=== PATIENT | female | born 1955 | race Caucasian/White ===

== ENCOUNTER → 2017-04-02 20:00 | Outpatient (CLI) | payer BC, SELFPAY | PROVIDERS: PCP Nurse Practitioner Family; Visit Provider Nurse Practitioner Family | DX: J02.9 Acute pharyngitis, unspecified (principal) ==

== ENCOUNTER 2020-12-27 11:46 | Emergency (ER) | payer BC, SELFPAY ==
[2020-12-27 12:40] VITALS: BP 192/119; PULSE 101; RESP 20; TEMP 37.1; O2SAT 96; BMI 31.6
[2020-12-27 13:03] LABS: UTC Strep Screen (Rapid) Positive (Negative)
--- NOTE | 2020-12-27 13:28 | HMH.EDUTC ---
[facility] [place] Disposition Clinical Impression: Strep throat Disposition: Home, Self-Care Condition on Discharge: Good Instructions: Strep Throat, DI for Strep Throat Additional Instructions: Drink plenty of fluids. Take tylenol or ibuprofen for pain or fever. Take the medications as directed. Follow up with your regular doctor. GO TO THE ER FOR ANY WORSENING SYMPTOMS Throw your tooth brush away and get a new one. Prescriptions: Amoxicillin [Amoxicillin 500mg Tab] 500 mg PO TID 10 Days #30 tab Transmission Status: Received by [facility] # predniSONE [Deltasone 10mg tablet] 10 mg PO BID 3 Days #6 tab Transmission Status: Received by [facility] # Benzonatate [Tessalon Perle 100mg Cap] 100 mg PO TIDP PRN #30 cap PRN Reason: Cough Transmission Status: Received by [facility] # Referrals: Buddy Huffman MD [Primary Care Provider] - Forms: Work/School Release Time of Disposition: 13:30 Medical Decision Making - Medical Records Medical records reviewed: No: I reviewed the patient's medical records. - Arvin Inquiry Pt receiving controlled substance: No Vital Signs: 12/27/20 12:40 12/27/20 13:35 Temperature 98.7 F 98.7 F Temperature Source Oral Pulse Rate 101 H Pulse Rate [Right Brachial] 101 H Respiratory Rate 20 20 Blood Pressure 192/119 H Blood Pressure [Right Arm] 192/119 H Blood Pressure Mean [Right Arm] 143 Blood Pressure Source [Right Arm] Automatic Cuff Blood Pressure Position [Right Arm] Sitting 02 Sat by Pulse Oximetry 96 Oxygen Delivery Method Room Air - Lab Data Lab results reviewed: Yes: I reviewed the patient's lab results. Lab Results 12/27/20 12:57: Strep Scn Rapid Clinic Positive A [facility] [place] HPI - General Time Seen by Provider: 12/27/20 12:45 Mode of Arrival: Ambulatory Source of Information: Patient Limitations: No Limitations Description of Symptoms (Recalled from Triage Doc. by RN): PATIENT C/O SORE THROAT X 2 DAYS HEENT Symptoms (Recalled from RN notes): Yes Resp Symptoms (Recalled from RN notes): No Skin Symptoms (Recalled from RN notes): No MS Symptoms (Recalled from RN notes): No Functional Status (Recalled from RN notes): WNL - History of Present Illness Provider Complaint: She c/o sore throat for the past 2 days. She denies any significant cough or congestion. - Related Data Home Medications Medication Instructions Recorded Confirmed hydrochlorothiazide 25 mg tablet 25 mg PO ONCE 04/02/17 01/21/18 lisinopril 40 mg tablet 40 mg PO ONCE 04/02/17 01/21/18 Previous Rx's Medication Instructions Recorded amoxicillin 500 mg capsule 500 mg PO Q12H 10 Days #20 cap 01/21/18 miconazole nitrate 200 mg-2 % (9 1 appful VAGINAL QHS 3 Days #1 each 01/21/18 gram) vaginal kit Amoxicillin [Amoxicillin 500mg Tab] 500 mg PO TID 10 Days #30 tab 12/27/20 Benzonatate [Tessalon Perle 100mg 100 mg PO TIDP PRN #30 cap 12/27/20 Cap] predniSONE [Deltasone 10mg tablet] 10 mg PO BID 3 Days #6 tab 12/27/20 Allergies Allergy/AdvReac Type Severity Reaction Status Date / Time sulfamethoxazole Allergy Unknown Verified 12/27/20 13:06 [From BACTRIM] trimethoprim [From BACTRIM] Allergy Unknown Verified 12/27/20 13:06 fluconazole [From Diflucan] AdvReac Intermediate Verified 01/21/18 16:36 - Worker's Comp Is this a Worker's Comp case?: No [facility] History - Hepatitis A Screen Drug use history?: No High risk sexual behaviors?: No History of sexually transmitted infection?: No Currently employed?: No Childcare worker?: No Do you have indoor plumbing?: Yes Do you have electricity?: Yes Attestation statement:: This patient has been screened for Hepatitis A risk factors. I have reviewed the patient's past medical history: Yes Medical History: Reports:: Hypertension - Social History Smoking Status: Never smoker Alcohol Intake: never Substance Use Type: denies use Occupational Status: em
[2020-12-27 13:35] VITALS: BP 192/119; PULSE 101; RESP 20; TEMP 37.1; O2SAT 96
== END 2020-12-27 13:53 | disposition home or self-care (01) ==
PROVIDERS: Emergency Provider Nurse Practitioner Family; PCP Family Medicine
DX: J02.9 Acute pharyngitis, unspecified (principal)
CPT/HCPCS: 87880; 99202; G0463

== ENCOUNTER 2021-01-13 15:43 | Emergency (ER) | payer BC, SELFPAY ==
[2021-01-13 17:00] VITALS: BP 208/132; PULSE 96; RESP 21; TEMP 36.9; O2SAT 98; BMI 29.7
[2021-01-13 17:38] LABS: UTC Strep Screen (Rapid) Negative (Negative)
--- NOTE | 2021-01-13 17:46 | HMH.EDUTC ---
[facility] Disposition Clinical Impression: Sore throat (viral) Disposition: Home, Self-Care Condition on Discharge: Good Instructions: Sore Throat, Allergic Rhinitis, DI for Allergic Rhinitis Additional Instructions: *Monitor Temp, Over the counter Motrin or Tylenol as directed/as needed Tylenol every 4 hours and Motrin every 6 hours (as long as your family doctor has told you that you can take it) for fever or pain. and straight to ER if unable to lower temp less than 101.0 after medication given *Warm salt water gargles may help to soothe the throat *Throat Lozenges *Warm fluids like tea with honey may help to soothe the throat *Sleep elevated *Humidifier/Vaporizer *Flonase 2 sprays in each nostril daily but be aware that it may take 2-3 days before you notice improvement Make sure to follow up with your Family Doctor for re-evaluation of your blood pressure Your throat swab was sent for culture. Those results are typically sent to your primary care. Be sure to follow up in 2-3 days with your family doctor/primary care physician if no improvement so they can review those result and treat if necessary. If you don?t have a primary care doctor, I recommend you get one but in the mean time, you will have to return to a walk in clinic Follow up IMMEDIATELY for new or worsening symptoms or no Noticeable improvement over the next 48-72 hours. 911 for difficulty breathing or swallowing Prescriptions: Fluticasone Propionate [Flonase 50mcg nasal spray 16gm] 1 spr NS DAILY #1 each Transmission Status: Received by [facility] #[id number] Referrals: Madeline Clarke PA [Primary Care Provider] - As needed Time of Disposition: 17:50 Medical Decision Making - Arvin Inquiry Pt receiving controlled substance: No Arvin was queried for this patient: No Vital Signs: 01/13/21 17:00 01/13/21 17:53 Temperature 98.4 F 98.4 F Temperature Source Oral Pulse Rate 96 H Pulse Rate [Right Brachial] 96 H Respiratory Rate 21 21 Blood Pressure 173/108 H Blood Pressure [Right Arm] 208/132 H Blood Pressure Mean [Right Arm] 157 Blood Pressure Source [Right Arm] Automatic Cuff Blood Pressure Position [Right Arm] Sitting 02 Sat by Pulse Oximetry 98 Oxygen Delivery Method Room Air - Lab Data Lab results reviewed: Yes: I reviewed the patient's lab results. Lab Results 01/13/21 17:15: Strep Scn Rapid Clinic Negative Orders (Tests/Meds): ORDERS Category Date Time Status Strep Screen Confirmation Stat Micro 01/13/21 17:15 Received Medical Decision Narrative: Discussed with patient about blood pressure and she declined transfer to the ED states that she will follow up with her PCP [facility] HPI - General Stated complaint: sore throat drainage Time Seen by Provider: 01/13/21 17:46 Mode of Arrival: Ambulatory Source of Information: Patient Limitations: No Limitations Description of Symptoms (Recalled from Triage Doc. by RN): PATIENT C/O SORE THROAT X 4 DAYS HEENT Symptoms (Recalled from RN notes): Yes Resp Symptoms (Recalled from RN notes): No Skin Symptoms (Recalled from RN notes): No MS Symptoms (Recalled from RN notes): No Functional Status (Recalled from RN notes): WNL - History of Present Illness Provider Complaint: Patient states that she has been having sore throat and nasal drainage for the last 3-4 days States that she her drainage from her nose is clear adn jeannine feels like it may be allergies but grandchild had strep a few weeks ago so she wanted to get checked - Related Data Home Medications Medication Instructions Recorded Confirmed hydrochlorothiazide 25 mg tablet 25 mg PO ONCE 04/02/17 01/21/18 lisinopril 40 mg tablet 40 mg PO ONCE 04/02/17 01/21/18 Previous Rx's Medication Instructions Recorded amoxicillin 500 mg capsule 500 mg PO Q12H 10 Days #20 cap 01/21/18 miconazole nitrate 200 mg-2 % (9 1 appful VAGINAL QHS 3 Days #1 each 01/21/18 gram) vaginal kit Amoxicillin [Amoxicillin 500m
[2021-01-13 17:53] VITALS: BP 173/108; PULSE 96; RESP 21; TEMP 36.9; O2SAT 98
== END 2021-01-13 17:58 | disposition home or self-care (01) ==
PROVIDERS: Emergency Provider Nurse Practitioner; PCP Physician Assistant
DX: J02.9 Acute pharyngitis, unspecified (principal); I10 Essential (primary) hypertension
CPT/HCPCS: 87880; 99202; G0463

== ENCOUNTER → 2021-04-07 13:23 | Outpatient (CLI) | payer MEDICARE, BC, SELFPAY ==
[2021-04-07 13:52] LABS: Chloride 101 mmol/L (98-107); Potassium 4.7 mmoL/L (3.5-5.1); Sodium 132 mmol/L (136-145)
[2021-04-07 13:55] LABS: Alanine Aminotransferase 19 U/L (12-78); Albumin Level 4.4 g/dl (3.5-5.0); Albumin/Globulin Ratio 1.6 (1.1-1.8); Alkaline Phosphatase 140 U/L (38-126); Anion Gap 14.7 mEq/L (5-15); Aspartate Amino Transferase 29 U/L (14-36); Bilirubin,Total 0.8 mg/dl (0.2-1.3); Blood Urea Nitrogen 15 mg/dl (7-17); Calcium 8.3 mg/dl (8.4-10.2); Carbon Dioxide 21 mmol/L (22.0-30.0); Estimated Glomerular Filt Rate 124 ml/min (>60); GFR (African American) 150 ML/MIN (>60); Globulin 2.8 g/dL (1.3-3.2); Glucose 356 mg/dl (74-100); Magnesium 1.8 mg/dl (1.6-2.3); Total Protein,Serum 7.2 g/dl (6.3-8.2)
[2021-04-07 13:56] LABS: Basophils # 0.1 K/mm3 (0-0.2); Basophils % 1.5 % (0.1-2.0); Eosinophils # 0.1 K/mm3 (0.0-0.4); Eosinophils % 0.9 % (0.1-12.0); Hematocrit 54.7 % (37.0-47.0); Hemoglobin 17.8 g/dL (12.2-16.2); Lymphocytes # 1.3 K/mm3 (0.7-4.5); Lymphocytes % 18.2 % (10-50); Mean Corpuscular HGB Conc 32.6 g/dL (31.8-35.4); Mean Corpuscular Volume 88.7 fl (81-99); Mean Platelet Volume 8.1 fl (7.4-10.4); Monocytes # 0.4 K/mm3 (0.1-1.0); Monocytes % 5.1 % (1.7-9.3); Neutrophils # 5.3 K/mm3 (1.8-7.8); Neutrophils % 74.2 % (37.0-80.0); Platelet Count 351 K/mm3 (142-424); Red Blood Count 6.17 M/mm3 (4.20-5.40); Red Cell Distribution Width 13.7 % (11.5-17.5); White Blood Count 7.2 K/mm3 (4.8-10.8)
[2021-04-07 14:08] LABS: Troponin I 0.14 ng/ml (0.00-0.034)
[2021-04-07 14:26] LABS: Thyroid Stimulating Hormone 0.75 uIU/mL (0.465-4.68)
[2021-04-07 16:58] LABS: Hemoglobin A1C > 14.0 % (4.0-6.0)
== END ==
PROVIDERS: PCP Nurse Practitioner Family; Visit Provider Nurse Practitioner Family
DX: R07.89 Other chest pain (principal); R00.0 Tachycardia, unspecified; E11.9 Type 2 diabetes mellitus without complications; Z79.4 Long term (current) use of insulin
CPT/HCPCS: 36415; 80053; 83036; 83735; 84443; 84484; 85025

== ENCOUNTER → 2021-04-08 07:51 | Outpatient (CLI) | payer MEDICARE, BC, SELFPAY ==
[2021-04-08 09:09] LABS: Chol/HDL Ratio 6.3 (1-3.5); Cholesterol 263 mg/dl (140-200); HDL Cholesterol 42 mg/dl (40-60); Triglycerides 269 mg/dl (30-150); VLDL Cholesterol 54 mg/dL (0-40)
[2021-04-08 09:20] LABS: Direct LDL Cholesterol 197.78 mg/dL (100-129)
[2021-04-08 09:26] LABS: Troponin I 0.56 ng/ml (0.00-0.034)
[2021-04-08 12:49] LABS: CATHL Activated Clotting Time 198 SEC (74-125)
== END ==
PROVIDERS: PCP Nurse Practitioner Family; Visit Provider Nurse Practitioner Family
DX: Z00.00 Encounter for general adult medical examination without abnormal findings (principal); R77.8 Other specified abnormalities of plasma proteins; E78.5 Hyperlipidemia, unspecified; E11.9 Type 2 diabetes mellitus without complications; Z79.4 Long term (current) use of insulin
CPT/HCPCS: 36415; 80061; 84484; 85347; Q9967

== ENCOUNTER 2021-04-08 10:23 | Inpatient (IN) | payer MEDICARE, BC, SELFPAY ==
[2021-04-08] VITALS (20 sets, daily range): BP systolic 141–192; BP diastolic 91–119; PULSE 99–128; RESP 16–20; TEMP 36.6–37; O2SAT 93–98; BMI 30.4; BMI 30.6
--- NOTE | 2021-04-08 | IR_ITS ---
APPROVED REPORT Patient Location: Inpatient Director Of Enterprise Applications: KAYLA Bryant RT (R) PROCEDURES Left heart catheterization Left ventriculogram Selective coronary angiogram Drug-eluting stent deployment to the mid LAD INDICATION Acute non-ST elevation myocardial infarction Informed consent was obtained prior to the procedure. COMPLICATIONS None Estimated Blood Loss: Less than 10 ML TECHNIQUE One percent lidocaine used to anesthetize the right anterior aspect of the wrist. The right radial artery was accessed via the Seldinger technique. A 6 Slov[place] sheath was placed in the right radial artery. 2.5 mg of verapamil, 800 mcg of nitroglycerin, 1mg Lidocaine and 5000 U Heparin were given through the arterial sheath. The [place] catheter was also used to perform left heart catheterization, left ventriculogram and selective coronary angiogram. At the end the diagnostic angiogram therapeutic heparin was administered giving a therapeutic ACT and the same guide catheter was left in the left main artery where a Choice PT extra-support wire was placed distally in the LAD. A 2.5 mm balloon was used to predilate the stenosis however this continues to [facility] seed therefore a 3 mm x 22 mm resolute [place] stent was deployed at 24 siddhartha reducing the critical stenosis to 0%. ABDIAS I flow was present at the beginning of the procedure with ABDIAS-3 flow at the end of the procedure. At the end of the procedure the apparatus was removed the sheath was removed good hemostasis was achieved using TR banding patient was transferred to the postop putting in stable condition ANGIOGRAPHIC RESULTS The left main artery Normal The left anterior descending artery Has a proximal smooth 10 to 20% stenosis followed by a critical greater than 90% stenosis immediately after the first diagonal artery and first septal plating stripper. The remaining LAD wraps the apex and is accompanied by ABDIAS I flow. 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 Brilinta 90 twice daily plus aspirin 81 mg daily 2. LDL less than 55 to be achieved with high intensity statin 3. Avoidance of tobacco products 4. Obtain a formal echocardiogram to specifically measure ejection fraction. If ejection fraction is 35% or less I recommend LifeVest due to patient's increased risk of sudden cardiac 5. Start Entresto and carvedilol once hemodynamically stable 6. Cardiac rehabilitation referral 7. Medical management for the diagonal artery disease Electronically signed by : John Hernandez MD 04/08/2021 12:52:57
--- NOTE | 2021-04-08 10:19 | ECG_ITS ---
APPROVED REPORT Exam: Resting ECG HR:111 bpm ECG Measurements Heart Rate 111 AXES TX 126 P 79 QRSd 94 QRS 112 QT 331 T 48 QTc 396 Conclusion SINUS TACHYCARDIA POSSIBLE RIGHT VENTRICULAR HYPERTROPHY [SOME/ALL OF: PROMINENT R IN V1, LATE TRANSITION, RAD, ULISES, SSS] poor r wave progression ABNORMAL ECG UNCONFIRMED REPORT Electronically signed by : Joe Lynch MD 04/09/2021 07:37:04
--- NOTE | 2021-04-08 10:30 | XR_ITS ---
FINAL REPORT CLINICAL HISTORY: . CHEST PAIN COMPARISON: May 25, 2015 FINDINGS: The heart size is normal. The mediastinum is normal. There is mild bilateral atelectasis. There are no pleural effusions. There is no pneumothorax. There is no osseous abnormality. IMPRESSION: Mild bilateral atelectasis. Reviewed, Interpreted and Dictated by Reginald Solano III, MD Transcribed by Piyush Campoverde Authenticated by Rgeinald Solano III, MD on 04/08/2021 11:37:44 AM [facility]
[2021-04-08 10:44] LABS: Basophils # 0.2 K/mm3 (0-0.2); Eosinophils # 0.1 K/mm3 (0.0-0.4); Hematocrit 56.4 % (37.0-47.0); Lymphocytes # 1.9 K/mm3 (0.7-4.5); Lymphocytes % 23.7 % (10-50); Mean Corpuscular HGB Conc 32.6 g/dL (31.8-35.4); Monocytes # 0.5 K/mm3 (0.1-1.0); Neutrophils # 5.3 K/mm3 (1.8-7.8); Neutrophils % 67.4 % (37.0-80.0); Platelet Count 353 K/mm3 (142-424); Red Blood Count 6.34 M/mm3 (4.20-5.40); Red Cell Distribution Width 13.8 % (11.5-17.5); White Blood Count 7.9 K/mm3 (4.8-10.8)
--- NOTE | 2021-04-08 10:45 | PC.NURSE ---
notified cardiology office of pt in ER, spoke with irma
--- NOTE | 2021-04-08 10:48 | HMH.EDGENADL ---
ED Disposition Clinical Impression: ACS (acute coronary syndrome) Disposition: Admitted As Inpatient Condition on Discharge: Undetermined Referrals: Michelle Bowles APRN [Primary Care Provider] - - Critical Care Critical Care Time: No Attestation: On 04/08/21, the high probability of a clinically significant, sudden or life threatening deterioration of the following system(s) required my full and direct attention, intervention and personal management. The time I documented below is in addition to time spent performing reported procedures but includes the following listed in this critical care notation. Medical Decision Making - Medical Records Medical records reviewed: Yes: I reviewed the patient's medical records. - Arvin Inquiry Pt receiving controlled substance: No Vital Signs: 04/08/21 10:24 04/08/21 10:30 04/08/21 11:00 Temperature 98.6 F Temperature Source Oral Pulse Rate 112 H 112 H Pulse Rate [Right Radial] 105 H Respiratory Rate 18 16 16 Blood Pressure 175/114 H 168/113 H Blood Pressure [Right Arm] 186/119 H Blood Pressure Mean 134 129 Blood Pressure Mean [Right Arm] 141 Blood Pressure Source [Right Arm] Automatic Cuff Blood Pressure Position [Right Arm] Sitting 02 Sat by Pulse Oximetry 96 95 95 Oxygen Delivery Method Room Air Room Air Nasal Cannula - Lab Data Lab results reviewed: Yes: I reviewed the patient's lab results. Lab Results 04/08/21 10:25: WBC 7.9, RBC 6.34 H, Hgb 18.4 H, Hct 56.4 H, MCV 89.0, MCH 29.0, MCHC 32.6, RDW 13.8, Plt Count 353, MPV 8.0, Neut % (Auto) 67.4, Lymph % (Auto) 23.7, Wilkinson % (Auto) 6.0, Eos % (Auto) 1.0, Baso % (Auto) 2.0, Neut # (Auto) 5.3, Lymph # (Auto) 1.9, Wilkinson # (Auto) 0.5, Eos # (Auto) 0.1, Baso # (Auto) 0.2 04/08/21 10:25: Sodium 133 L, Potassium 4.3, Chloride 101, Carbon Dioxide 18 L, Anion Gap 18.3 H, BUN 16, Creatinine 0.50 L, Estimated Creat Clear 74, Estimated GFR 124, Est GFR ( Amer) 150, Glucose 318 H, Calcium 8.8, Troponin I 0.40 H 04/08/21 10:25: D-Dimer 0.34 04/08/21 10:25: NT-Pro-B Natriuret Pep 688 H Result diagrams: 04/08/21 10:25 04/08/21 10:25 Orders (Tests/Meds): ED MEDICATIONS Generic Name Dose Route Start Last Admin Trade Name Freq PRN Reason Stop Dose Admin Fentanyl Citrate 25 mcg 04/08/21 11:33 Fentanyl 100mcg/2ml Vial IV 04/09/21 11:33 Q3MINP PRN Moderate to Severe Pain Fentanyl Citrate 50 mcg 04/08/21 11:33 Fentanyl 100mcg/2ml Vial IV 04/09/21 11:33 Q3MINP PRN Moderate to Severe Pain Fentanyl Citrate 25 mcg 04/08/21 11:33 Fentanyl 250mcg/5ml Vial IV 04/09/21 11:33 Q3MINP PRN Moderate to Severe Pain Fentanyl Citrate 50 mcg 04/08/21 11:33 Fentanyl 250mcg/5ml Vial IV 04/09/21 11:33 Q3MINP PRN Moderate to Severe Pain Flumazenil 0.2 mg 04/08/21 11:33 Flumazenil 0.1mg/Ml 5ml Vial IV 04/08/21 23:00 NEEDED PRN Sedation Heparin Sodium (Porcine) 10,000 unit 04/08/21 11:33 Heparin 1,000 Units/Ml 10ml Vial (Customer Program Manager) IV 04/08/21 15:33 NEEDED PRN Emergency Box Crystalizer Sodium Chloride 1,000 mls @ 25 mls/hr 04/08/21 11:45 Sod Chlor 0.9% 1000ml Bag IV 04/09/21 11:33 .Q25H [place] Midazolam HCl 1 mg 04/08/21 11:33 Midazolam 2mg/2ml Vial IV 04/09/21 11:33 Q3MINP PRN Sedation Midazolam HCl 1 mg 04/08/21 11:33 Midazolam Hcl 1mg/1ml 5ml Vial IV 04/09/21 11:33 Q3MINP PRN Sedation Naloxone HCl 0.4 mg 04/08/21 11:33 Naloxone 0.4mg/Ml Vial IV 04/09/21 11:33 Q5MINP PRN Decreased Respirations Nitroglycerin 800 mcg 04/08/21 11:33 Nitroglycerin 800mcg/8ml Syr (Customer Program Manager) IV 04/09/21 11:33 NEEDED PRN Emergency Box Crystalizer Sodium Chloride 10 ml 04/08/21 10:30 Sodium Chloride 0.9% 10ml Flush Syringe IV 05/08/21 10:29 NEEDED PRN Maintain IV Site Discontinued Medications Generic Name Dose Route Start Last Admin Trade
[2021-04-08 11:06] LABS: Anion Gap 18.3 mEq/L (5-15); Blood Urea Nitrogen 16 mg/dl (7-17); Calcium 8.8 mg/dl (8.4-10.2); Carbon Dioxide 18 mmol/L (22.0-30.0); Chloride 101 mmol/L (98-107); Creatinine Clearance Estimated 74 mL/min (50-200); Estimated Glomerular Filt Rate 124 ml/min (>60); GFR (African American) 150 ML/MIN (>60); Glucose 318 mg/dl (74-100); Potassium 4.3 mmoL/L (3.5-5.1); Sodium 133 mmol/L (136-145)
--- NOTE | 2021-04-08 11:10 | PC.NURSE ---
ta bushn at BS
[2021-04-08 11:11] LABS: D-Dimer 0.34 ug/mL (0.0-0.5)
[2021-04-08 11:16] LABS: NT Pro Brain Natriuretic Pep. 688 pg/mL (0-125)
--- NOTE | 2021-04-08 11:19 | PC.NURSE ---
per sofía bush pt is going to go over for a heart cath today
--- NOTE | 2021-04-08 11:22 | PC.NURSE ---
notified ER of pt critical troponin
[2021-04-08 11:31] LABS: Hemoglobin 18.4 g/dL (12.2-16.2)
[2021-04-08 11:32] LABS: Influenza A, PCR Not Detected (NotDetected); Influenza B, PCR Not Detected (NotDetected)
--- NOTE | 2021-04-08 11:35 | PC.NURSE ---
contacted lab to check on status of covid swab.
--- NOTE | 2021-04-08 11:40 | PC.NURSE ---
pt to medical laboratory manager with sylvia corona at this time via wheelchair
--- NOTE | 2021-04-08 11:40 | PC.NURSE ---
Sign Erector And Repairer nurse present to transport pt to lab. Reel Operator called down and inquired about pt's COVID results. Notified senior program manager and Sign Erector And Repairer nurse that they have not resulted at this time.
--- NOTE | 2021-04-08 11:44 | PC.NURSE ---
sofía hawkins agreeable to admit pt.
--- NOTE | 2021-04-08 11:47 | PC.NURSE ---
notified bottle house quality control technician of admission-care management unavailable at this time
--- NOTE | 2021-04-08 11:48 | HMH.CNCARD ---
History of Present Illness Consult date: 04/08/21 Requesting physician: Anai Martinez Consult reason: chest pain Chief complaint: chest pain History of present illness: This is a 65-year-old white female who presented to the emergency department with complaints of chest pain and an elevated troponin. The patient saw her primary care provider yesterday with complaints of chest pain. She states that that started about 2 weeks ago and she has been having intermittent sharp pain in the substernal aspect of her chest that radiated between her shoulder blades. She states that this chest pain occurs intermittently and will only resolve if she goes and lays down and goes to sleep. She states that the chest pain typically occurs with rest. She denies associated shortness of breath, nausea or diaphoresis. She states that this has just been going on and off intermittently. She states that her primary care provider was concerned that she had reflux but also sent her for blood work and she had an elevated troponin at 0.14 yesterday. Her primary care provider had her come back to the outpatient lab today and have a repeat troponin which was once again elevated at 0.54. Her primary care provider did call JUSTEN Streeter, and wanted the patient to be evaluated in cardiology clinic. JUSTEN Streeter recommended that the patient go to the emergency department due to her elevated troponin consistent with a non-ST elevation myocardial infarction. Currently the patient is chest pain-free. She denies shortness of breath or edema. She denies fever, chills, nausea, vomiting, diarrhea, PND or orthopnea. [facility] History I have reviewed the patient's past medical history: Yes Medical History: Reports:: Diabetes Mellitus Type 2, Hyperlipidemia, Hypertension *Have you ever received a pneumonia vaccine?: No *Have you received a flu vaccine this season?: No - *Social History Smoking Status: Never smoker Alcohol Intake: never Substance Use Type: denies use *Occupational Status:: employed Household Members: family *Travel in the last 8 weeks: None Family Hx:: Non-contributory Meds Home Medications Medication Instructions Recorded Confirmed Type Cetirizine HCl [Zyrtec 10mg Tab*] 10 mg PO DAILY 04/08/21 04/08/21 History Fluticasone Propionate [Flonase 1 spr NS DAILY 04/08/21 04/08/21 History 50mcg nasal spray 16gm] Omeprazole [Omeprazole 20mg 20 mg PO DAILY 04/08/21 04/08/21 History Capsule] Allergies Allergy/AdvReac Type Severity Reaction Status Date / Time sulfamethoxazole Allergy Unknown Verified 12/27/20 13:06 [From BACTRIM] trimethoprim [From BACTRIM] Allergy Unknown Verified 12/27/20 13:06 fluconazole [From Diflucan] AdvReac Intermediate Verified 01/21/18 16:36 Exam Vital signs and Labs for Last 24 Hours: Temp Pulse Resp BP Pulse Ox 98.6 F 112 H 16 168/113 H 95 04/08/21 10:24 04/08/21 11:00 04/08/21 11:00 04/08/21 11:00 04/08/21 11:00 Laboratory Results - last 24 hr 04/08/21 10:25: WBC 7.9, RBC 6.34 H, Hgb 18.4 H, Hct 56.4 H, MCV 89.0, MCH 29.0, MCHC 32.6, RDW 13.8, Plt Count 353, MPV 8.0, Neut % (Auto) 67.4, Lymph % (Auto) 23.7, Alfalfa % (Auto) 6.0, Eos % (Auto) 1.0, Baso % (Auto) 2.0, Neut # (Auto) 5.3, Lymph # (Auto) 1.9, Alfalfa # (Auto) 0.5, Eos # (Auto) 0.1, Baso # (Auto) 0.2 04/08/21 10:25: Sodium 133 L, Potassium 4.3, Chloride 101, Carbon Dioxide 18 L, Anion Gap 18.3 H, BUN 16, Creatinine 0.50 L, Estimated Creat Clear 74, Estimated GFR 124, Est GFR ( Amer) 150, Glucose 318 H, Calcium 8.8, Troponin I 0.40 H 04/08/21 10:25: D-Dimer 0.34 04/08/21 10:25: NT-Pro-B Natriuret Pep 688 H I & O for Last 24 hours: Intake & Output 04/05/21 04/06/21 04/07/21 04/08/21 23:59 23:59 23:59 23:59 Weight 183 lb Narrative: EKG is sinus tachycardia with a rate of 111 and anteroseptal VT pattern. - Constitutional no acute distress, average body habitus - *Routine HEENT Exam Head: Present: normocephalic, atrau
[2021-04-08 11:58] LABS: Coronavirus 19, PCR Detected (NotDetected)
--- NOTE | 2021-04-08 12:38 | HMH.PHAINT ---
MEDICATION RECONCILIATION COMPLETED ON PATIENT USING EXTERNAL FILL HISTORY FROM PHARMACY. -DEWAYNE MATHEWS, JONATHAND
--- NOTE | 2021-04-08 12:48 | CA_ITS ---
APPROVED REPORT EXAM: Comprehensive 2D, Doppler, and color-flow Echocardiogram Professor Of Mathematics: Muna Shaffer RVT Ht: 5 ft 5 in Wt: 183lbs BSA: 1.90 BP: 168/113 mmHg Indications: NSTEMI,EF OF 30% ON CATH TODAY,COVID POS.,DM,HTN,HLD,CP 2D Dimensions LVOT 1.99 cm (M/F) 1.5-2.5 M-Mode Dimensions RVDd 1.35 cm (0.9-2.6) LA Diam 2.93 cm (1.9-4.0) LVDd 5.09 cm (3.5-5.7) Ao Diam 2.29 cm (2.0-3.7) LVDs 4.83 cm (3.5-5.7) IVSd 1.20 cm (0.6-1.1) PWd 0.70 cm (0.6-1.1) EF (Teich) 11.40% FS 5.10% EDV (Teich) 123.20 mL TAPSE 1.90 (<1.7) ESV (Teich) 109.10 mL LV Diastology E Decel Time 150.00 (160-240 msec) E/A Ratio 0.6 MED E' 5.90 (< 7 cm/sec) E'/MED E' Ratio 9.51 (>14) LAT E' 5.60 (<10 cm/sec) E/LAT E' Ratio 10.02 (>14) Mitral Valve MV E Max Nicola. 56.00 (40-130 cm/s) MV A Velocity 90.00 (40-130 cm/s) E/A Ratio 0.62 MV Decel. Time 150.00 (160-240 ms) MV PHT 44.00 ms Pulmonary Valve PV Peak Velocity 65.00 (50-150 cm/s) Left Ventricle Left atrium is mildly enlarged, left ventricle is normal size, mild concentric left ventricular hypertrophy, visually estimated ejection fraction approximately 30%, there is marked hypokinesis involving mid to distal septum, anterior, anterior apical and apical wall. Grade 1 diastolic dysfunction seen without tissue Doppler evidence of raise left atrial pressure. Right Ventricle Right atrium and right ventricle are normal size and contractility. Aortic Valve Aortic valve is minimally thickened and fibrosed there is no aortic stenosis or aortic insufficiency. Mitral Valve Mitral valve grossly normal, there is trace mitral Tricuspid Valve Tricuspid valve grossly normal, there is trace tricuspid regurgitation tricuspid regurgitation jet versus inadequate for calculation of the right ventricular systolic pressure. Pulmonic Valve Pulmonic valve is poorly visualized. Great Vessels Aortic root is normal size. Inferior vena cava is normal size with normal inspiratory collapse. Pericardium No significant pericardial effusion noted. Conclusion 1. Normal left ventricular size, mild concentric left ventricular hypertrophy visually estimated ejection fraction 30% with segmental wall motion abnormalities described above. Grade 1 diastolic dysfunction seen without tissue Doppler evidence of raised left atrial pressure. 2. Trace mitral and tricuspid regurgitation. 3. No significant pericardial effusion. 4. Inferior vena cava is normal size with normal inspiratory collapse. Electronically signed by : Gene Jimenez MD 04/08/2021 15:22:15
--- NOTE | 2021-04-08 13:33 | HMH.HP ---
*Admission Date: 04/08/21 <Michelle Bowles 04/08/21 13:46> *Chief complaint: chest pain <Michelle Bowles 04/08/21 13:46> *History of present illness: 65 year old female seen yesterday for intermittent chest pain x 2 weeks. Reports midsternal pain, occasional radiation to upper back, increases with eating, seemed to be better at night when laying in bed. No specific exertional correlation. Not accompanied by SOA, nausea or diaphoresis. C/o hearburn. EKG showed ST 115, poor R wave progression and nonspecific ST changes. She was pain free at time and no other EKG was available for comparison. Treated for possible GERD, PPI started, symptoms concerning for possible cardiac etiology given her EKG changes and tachycardia. Sent for labs, troponin 0.14, Glucose 356, A1C 14. New diabetes diagnosis. Patient was advised to repeat troponin in the am and come to office. Troponin 0.56. Called cardiology [facility] Multani to see if we would be able to admit, given [facility] being on divert. Recommended to send to ED where they will evaluate and cath later today. Patient taken to cathlab, one stent placed in LAD. Found to have severe anterior apical hypokinesis with EF 35%. Pre-procedure COVID-19 PCR was positive. Admit to Medsurg unit with telemetry for monitoring and further evaluation. <Michelle Bowles 04/08/21 13:47> [facility] History I have reviewed the patient's past medical history: Yes <Michelle Bowles 04/08/21 13:52> Medical History: Reports:: Diabetes Mellitus Type 2, Hyperlipidemia, Hypertension Denies:: Cancer, Diabetes Mellitus Type 1, MRSA <Michelle Bowles 04/08/21 13:46> *Have you ever received a pneumonia vaccine?: No <Michelle Bowles 04/08/21 13:46> *Have you received a flu vaccine this season?: No <Michelle Bowles 04/08/21 13:46> Other Surgeries: Yes: Appendectomy, Hysterectomy-Total <Michelle Bowles 04/08/21 13:46> Amputation: No <Monalisa Bowles04/08/21 13:46> Fractures: No <Monalisa Bowles04/08/21 13:46> - *Social History Last grade of school completed: High school graduate <Michelle Bowles 04/08/21 13:46> Smoking Status: Never smoker <Michelle Bowles 04/08/21 13:46> Alcohol Intake: never <Michelle Bowles 04/08/21 13:46> Substance Use Type: denies use <Michelle Bowles 04/08/21 13:46> *Occupational Status:: retired <Michelle Bowles 04/08/21 13:46> Housing: house <Michelle Bowles 04/08/21 13:46> Household Members: spouse <Michelle Bowles 04/08/21 13:46> *Travel in the last 8 weeks: None <Michelle Bowles 04/08/21 13:46> Family Hx:: Non-contributory <Michelle Bowles 04/08/21 13:46> Review of Systems - Review of Systems Review of systems:: pertinent systems reviewed and negative unless documented below <Michelle Bowles 04/08/21 13:52> - *Cardiovascular Reports chest pain <Michelle Bowles 04/08/21 13:52> - *Gastrointestinal Reports heartburn <Monalisa Bowlesi 04/08/21 13:52> - *Neurologic Denies localized weakness, Denies headache(s), Denies numbness, Denies fainting <Michelle Bowles 04/08/21 13:46> Meds Home Medications Medication Instructions Recorded Confirmed Type Cetirizine HCl [Zyrtec 10mg Tab*] 10 mg PO DAILY 04/08/21 04/08/21 History Fluticasone Propionate [Flonase 1 spr NS DAILY 04/08/21 04/08/21 History 50mcg nasal spray 16gm] Omeprazole [Omeprazole 20mg 20 mg PO DAILY 04/08/21 04/08/21 History Capsule] <Kevin Awad 04/08/21 18:46> Allergies Allergy/AdvReac Type Severity Reaction Status Date / Time sulfamethoxazole Allergy Unknown Verified 12/27/20 13:06 [From BACTRIM] trimethoprim [From BACTRIM] Allergy Unknown Verified 11/01/21 13:06 fluconazole [From Diflucan] AdvReac Intermediate Verified 01/21/18 16:36 <Kevin Awad - 04/08/21 18:46> Exam Vital signs and Labs for Last 24 Hours: Temp Pulse Resp BP Pulse Ox 97.9 F 110 H 20 181/111 H 97 04/08/21 13:25 04/08/21 16:15 04/08/21 16:05 04/08/21 16:05 04/08/21 16:05 Laboratory Results - last 24 hr 04/08/21 10:25: WBC 7.9, RBC 6.34 H,
[2021-04-08 15:19] LABS: Troponin I 1.01 ng/ml (0.00-0.034)
--- NOTE | 2021-04-08 15:29 | CT_ITS ---
FINAL REPORT CLINICAL HISTORY: Decrease in GCS, Confusion post heart cath FINDINGS: Axial images of the head were obtained without contrast. Coronal reformatted images were also obtained. This study was performed with techniques to keep radiation doses as low as reasonably achievable (ALARA). Individualized dose reduction techniques using automated exposure control or adjustment of mA and/or kV according to the patient's size were employed. There is generalized age-appropriate atrophy. Periventricular low-attenuation areas are seen consistent with moderate chronic ischemic changes. There is ventriculomegaly consistent with the degree of atrophy. There is no evidence of intracranial hemorrhage or mass. There are several chronic periventricular lacunar infarcts. There is no definite acute infarct. There is no evidence of shift of the midline structures. No skull abnormality is seen on the bone window images. IMPRESSION: Atrophy and moderate periventricular chronic ischemic changes. No acute intracranial abnormality identified. If indicated, MRI could further evaluate. Reviewed, Interpreted and Dictated by Reginald Solano III, MD Transcribed by Piyush Campoverde Authenticated by Reginald Solano III, MD on 04/08/2021 04:17:23 PM [facility]
--- NOTE | 2021-04-08 15:30 | CA_ITS ---
FINAL REPORT TECHNIQUE: Color Doppler, duplex Doppler and lindsay scale sonography of the bilateral neck vasculature was performed. Velocities were measured in the carotid arteries. Stenosis evaluation based on velocity criteria. CLINICAL HISTORY: MENTAL STATUS CHANGE,HTN,CAD FINDINGS: The peak systolic velocity of the right common carotid artery is 81 cm/sec and internal carotid artery 82 cm/sec. The diastolic velocity in the internal carotid artery is 25 cm/sec. The ICA/CCA ratio is 1.3. Visually, a small amount of plaque is seen. These findings are consistent with less than 50% stenosis. The external carotid artery is patent. The right vertebral artery is patent with antegrade flow. The peak systolic velocity of the left common carotid artery is 87 cm/sec and internal carotid artery 75 cm/sec. The diastolic velocity in the internal carotid artery is 11 cm/sec. The ICA/CCA ratio is 0.90. Visually, a small amount of plaque is seen. These findings are consistent with less than 50% stenosis. The external carotid artery is patent. The left vertebral artery is patent with antegrade flow. IMPRESSION: Less than 50% carotid stenosis bilaterally. Bilateral patent vertebral arteries. If indicated, CTA or MRA could further evaluate. Reviewed, Interpreted and Dictated by Reginald Solano III, MD Transcribed by Piyush Campoverde Authenticated by Reginald Solano III, MD on 04/08/2021 04:43:[address] [facility]
[2021-04-08 17:58] LABS: POC Glucose,Bedside 436 (70-110)
--- NOTE | 2021-04-08 18:42 | PC.NURSE ---
PT IS RESTING IN BED. NO COMPLAINTS OF CHEST PAIN OR SOA. WHEN PT INITIALLY ARRIVED TO THE FLOOR FROM THE [facility] OFFBEARER SHE WAS TALKING W/O ANY ISSUES AND UNDERSTOOD EVERYTHING THAT WAS GOING ON. WHEN YOHAN HERNÁNDEZ ROUNDED ON PT AFTER BEING ON THE FLOOR FOR A COUPLE OF HOURS WITH THIS NURSE AT BEDSIDE PT WAS NOTED HAVING EXPRESSIVE AND RECEPTIVE APHASIA AND WAS HAVING A DIFFICULT TIME UNDERSTANDING WHAT WAS GOING ON WITH HER MEDICALLY. PT DID EAT PRIOR TO THIS EVENT W/O DIFFICULTY. PT HAS BEEN AMBULATING TO THE BATHROOM. BP CONTINUES TO BE ELEVATED AFTER BEING MEDICATED (PCP NOTIFIED). LUNG SOUNDS CLEAR. ABDOMEN SOFT/NON TENDER. SINUS TACH ON THE MONITOR. WILL CONTINUE TO MONITOR.
[2021-04-09] VITALS (10 sets, daily range): BP systolic 116–172; BP diastolic 60–109; PULSE 100–116; RESP 16–19; TEMP 36.6–37.3; O2SAT 93–97; BMI 30.3
[2021-04-09 00:57] LABS: POC Glucose,Bedside 337 (70-110)
--- NOTE | 2021-04-09 02:23 | PC.NURSE ---
2199; dr ayala notified of pts hr 128 and up to 138 when up to bathroom, dr ayala on floor seeing pt at this time, verbal order given for po carvedilol 6.25mg x1 now, dr. ayala also made aware of pts confusion at times, pt able to tell me name and , but unable to tell me year, when asked pt stats 2025; pt able to tell me place. rythm strips were reviewed by dr ayala as well. will continue to monitor.
--- NOTE | 2021-04-09 06:02 | PC.NURSE ---
pt b/p better after second dose of carvedilol given, pt oriented to name and place and situation, but gets confused to year and birthday. This has been no changed from previous shift. when asking pt the year, she repeatedly stats 2055, when asked pt her birthday, pt stats 2055, when reinoriented pt will state thats right ., pt is aware she is unable to recall these things and gets upset with self, pt is able to understand, pt is able to ambulate well with no issues or concerns to bathroom by self.
--- NOTE | 2021-04-09 06:40 | HMH.ACPN2 ---
Internal Medicine - PN: Subj *Date: 04/09/21 *Time: 15:02 Interval history: Patient did well overnight. No acute events. Blood pressure better controlled this morning. Appears to be more oriented with improvement in her word finding difficulty this morning. Denies nausea, chest pain, vomiting, diarrhea. Shortness of breath. Stable on room air. Afebrile Exam Vital signs and Labs for Last 24 Hours: Temp Pulse Resp BP Pulse Ox 98.0 F 105 H 16 116/79 94 L 04/09/21 04:00 04/09/21 04:00 04/09/21 04:00 04/09/21 04:00 04/09/21 04:00 Laboratory Results - last 24 hr 04/08/21 10:25: WBC 7.9, RBC 6.34 H, Hgb 18.4 H, Hct 56.4 H, MCV 89.0, MCH 29.0, MCHC 32.6, RDW 13.8, Plt Count 353, MPV 8.0, Neut % (Auto) 67.4, Lymph % (Auto) 23.7, Snyder % (Auto) 6.0, Eos % (Auto) 1.0, Baso % (Auto) 2.0, Neut # (Auto) 5.3, Lymph # (Auto) 1.9, Snyder # (Auto) 0.5, Eos # (Auto) 0.1, Baso # (Auto) 0.2 04/08/21 10:25: Sodium 133 L, Potassium 4.3, Chloride 101, Carbon Dioxide 18 L, Anion Gap 18.3 H, BUN 16, Creatinine 0.50 L, Estimated Creat Clear 74, Estimated GFR 124, Est GFR ( Amer) 150, Glucose 318 H, Calcium 8.8, Troponin I 0.40 H 04/08/21 10:25: D-Dimer 0.34 04/08/21 10:25: NT-Pro-B Natriuret Pep 688 H 04/08/21 10:40: SARS-CoV-2 (PCR) Detected A, Influenza A Untype (PCR) Not detected, Influenza Type B (PCR) Not detected 04/08/21 14:35: Troponin I 1.01 H 04/08/21 17:50: POC Glucose 436 H* 04/08/21 22:19: POC Glucose 337 H* I & O for Last 24 hours: Intake & Output 04/06/21 04/07/21 04/08/21 04/09/21 23:59 23:59 23:59 23:59 Intake Total 120 / 120 Balance 120 / 120 Weight 83 kg 82.6 kg - Constitutional no acute distress, obese - *Routine HEENT Exam Head: Present: normocephalic Eye: Present: EOMI, PERRL ENT: Present: mucous membranes moist - *Routine Neck Exam Present: supple. Absent: lymphadenopathy - *Routine Respiratory Exam Present: CTA bilaterally - *Routine Cardiovascular Exam Present: tachycardia. Absent: murmur - *Routine Abdominal Exam Present: soft, normoactive bowel sounds. Absent: tenderness - *Routine Extremities Exam Absent: cyanosis, clubbing, edema - *Routine Skin Exam Present: warm. Absent: rash - *Routine Neurological Exam Present: alert, oriented X3, CN II-XII intact. Absent: motor deficit, pronator drift Interval improvement in word finding difficulty. No dysarthria on exam today Assessment and Plan (1) Non-ST elevation myocardial infarction (NSTEMI) Status: Acute Category: Medical Code(s): I21.4 - Non-ST elevation (NSTEMI) myocardial infarction (2) Elevated troponin Status: Acute Category: Medical Code(s): R77.8 - Other specified abnormalities of plasma proteins (3) Angina pectoris Status: Acute Category: Medical Code(s): I20.9 - Angina pectoris, unspecified (4) Hypertension Status: Chronic Qualifiers: Hypertension type: primary hypertension Qualified Code(s): I10 - Essential (primary) hypertension Category: Medical Code(s): I10 - Essential (primary) hypertension (5) HLD (hyperlipidemia) Status: Chronic Qualifiers: Hyperlipidemia type: mixed hyperlipidemia Qualified Code(s): E78.2 - Mixed hyperlipidemia Category: Medical Code(s): E78.5 - Hyperlipidemia, unspecified (6) Diabetes mellitus Status: Chronic Qualifiers: Diabetes mellitus type: type 2 Diabetes mellitus equipment operator intermodal yard insulin use: without usp use Diabetes mellitus complication status: without complication Qualified Code(s): E11.9 - Type 2 diabetes mellitus without complications Category: Medical Code(s): E11.9 - Type 2 diabetes mellitus without complications (7) Abnormal EKG Status: Acute Category: Medical Code(s): R94.31 - Abnormal electrocardiogram [ECG] [EKG] (8) Expressive aphasia Status: Acute Category: Medical Code(s): R47.01 - Aphasia (9) TIA (transient ischemic attack) Status: Acute Category: Medical
--- NOTE | 2021-04-09 09:36 | HMH.PHAVTE ---
[facility] Pharmacy VTE Monitoring - Patient Demographics Admission date: 04/09/21 Report Date: 04/09/21 Time: 09:36 Allergies/Adverse Reactions: Patient Allergies sulfamethoxazole [From BACTRIM] Allergy (Unknown, Verified 12/27/20 13:06) trimethoprim [From BACTRIM] Allergy (Unknown, Verified 12/27/20 13:06) fluconazole [From Diflucan] Adverse Reaction (Intermediate, Verified 01/21/18 16:36) Height: 1.65 m Weight: 82.6 kg Patient Problems: Current Active Problems ACS (acute coronary syndrome) (Acute) Non-ST elevation myocardial infarction (NSTEMI) (Acute) Elevated troponin (Acute) Angina pectoris (Acute) Hypertension (Chronic) HLD (hyperlipidemia) (Chronic) Diabetes mellitus (Chronic) Abnormal EKG (Acute) Expressive aphasia (Acute) TIA (transient ischemic attack) (Acute) - VTE Risk Labs: VTE Related Lab Results Hgb 18.4 g/dL (12.2-16.2) H 04/08/21 10:25 Hct 56.4 % (37.0-47.0) H 04/08/21 10:25 Plt Count 353 K/mm3 (142-424) 04/08/21 10:25 BUN 16 mg/dl (7-17) 04/08/21 10:25 Creatinine 0.50 mg/dl (0.52-1.04) L 04/08/21 10:25 Estimated Creat Clear 74 mL/min (50-200) 04/08/21 10:25 VTE Score: 1 - Prophylaxis Types of VTE Prophylaxis: TEDS Knee High Location of Applied Device: Bilateral Lower Extremeties (HESHAM HOSE ORDER PLACED)
[2021-04-09 11:50] LABS: POC Glucose,Bedside 327 (70-110)
[2021-04-09 11:50] LABS: POC Glucose,Bedside 376 (70-110)
--- NOTE | 2021-04-09 19:13 | PC.NURSE ---
pt continues to be confused but able to carry on a conversation. It takes her longer than usual to respond and she struggles to find words @ times. She has been getting up independently through out the shift. Denies any pain. aware
[2021-04-09 22:19] LABS: POC Glucose,Bedside 319 (70-110)
[2021-04-10] VITALS: PULSE 85
[2021-04-10 01:42] LABS: POC Glucose,Bedside 94 (70-110)
--- NOTE | 2021-04-10 01:44 | PC.NURSE ---
pt complained of abdominal cramping, and stated she was dizzy feeling upon ambulation to bathroom, and stated she was sweaty and felt weird, noted VSS 114/73; heart rate 82 NSR on monitor, o2 sats 92% on room air, fsbs was 94, explained that vital signs were stable, gave patient some orange juice and crackers, will continue to monitor, pt denies any chest pain.
[2021-04-10 01:47] VITALS: BP 114/73; PULSE 82; RESP 16; O2SAT 94
[2021-04-10 04:00] VITALS: BP 167/97; PULSE 80; PULSE 90; RESP 18; TEMP 36.6; O2SAT 96
[2021-04-10 04:42] LABS: POC Glucose,Bedside 274 (70-110)
--- NOTE | 2021-04-10 04:54 | PC.NURSE ---
0330 pt up to bedside and complained of nausea and vomiting, noted pt vomiting in trash can, zofran administered, pt complains of cramping on right side of abdomen and rates about a 5, warm blankets applied to side and pt stated some relief, pt also complained of some sweating, noted pillow damp but skin warm and dry to touch, fsbs obtained and was 274, VSS as documented, will continue to monitor. telemetry sinus rythm and no chest pain present.
[2021-04-10 05:00] VITALS: BMI 29.9
[2021-04-10 05:53] LABS: Basophils # 0.1 K/mm3 (0-0.2); Basophils % 0.7 % (0.1-2.0); Eosinophils % 0.2 % (0.1-12.0); Hematocrit 54.7 % (37.0-47.0); Hemoglobin 17.5 g/dL (12.2-16.2); Lymphocytes # 1.2 K/mm3 (0.7-4.5); Lymphocytes % 8.8 % (10-50); Mean Corpuscular Hemoglobin 28.9 pg (27.0-31.2); Mean Corpuscular Volume 90.2 fl (81-99); Mean Platelet Volume 7.9 fl (7.4-10.4); Monocytes # 0.4 K/mm3 (0.1-1.0); Monocytes % 2.6 % (1.7-9.3); Neutrophils # 12.2 K/mm3 (1.8-7.8); Neutrophils % 87.7 % (37.0-80.0); Platelet Count 386 K/mm3 (142-424); Red Blood Count 6.06 M/mm3 (4.20-5.40); Red Cell Distribution Width 13.6 % (11.5-17.5); White Blood Count 13.9 K/mm3 (4.8-10.8)
[2021-04-10 05:58] LABS: MANUAL DIFFERENTIAL MANUAL DIFFERENTIAL (MANUAL DIFF)
[2021-04-10 06:10] LABS: Alanine Aminotransferase 15 U/L (12-78); Albumin/Globulin Ratio 1.4 (1.1-1.8); Alkaline Phosphatase 126 U/L (38-126); Anion Gap 15.8 mEq/L (5-15); Aspartate Amino Transferase 29 U/L (14-36); Bilirubin,Total 0.7 mg/dl (0.2-1.3); Blood Urea Nitrogen 35 mg/dl (7-17); Calcium 9.1 mg/dl (8.4-10.2); Carbon Dioxide 23 mmol/L (22.0-30.0); Chloride 98 mmol/L (98-107); Creatinine Clearance Estimated 73 mL/min (50-200); Estimated Glomerular Filt Rate 72 ml/min (>60); GFR (African American) 87 ML/MIN (>60); Globulin 2.8 g/dL (1.3-3.2); Glucose 320 mg/dl (74-100); Magnesium 1.8 mg/dl (1.6-2.3); Potassium 3.8 mmoL/L (3.5-5.1); Sodium 133 mmol/L (136-145); Total Protein,Serum 6.8 g/dl (6.3-8.2)
[2021-04-10 06:35] LABS: Lymphocytes % 6 % (10-50); Monocytes % 4 % (2-9); Neutrophils % 85 % (42-76); Platelet Estimate Normal; RBC Morphology Normal; Total Cells Counted 100
--- NOTE | 2021-04-10 06:51 | PC.NURSE ---
REPORT GIVEN TO CHAITANYA
[2021-04-10 08:00] VITALS: PULSE 100
[2021-04-10 08:52] VITALS: BP 149/85; PULSE 106; RESP 18; TEMP 37.1; O2SAT 94
--- NOTE | 2021-04-10 09:30 | PC.NURSE ---
Pt has medication that came from pharmacy to be sent home. It is in the omnicell.
--- NOTE | 2021-04-10 10:12 | PC.NURSE ---
Life vest rep is currently in room with patient fitting her.
--- NOTE | 2021-04-10 11:59 | HMH.DCSUM ---
General - General Admission date:: 04/08/21 Discharge date: 04/10/21 HPI HPI: 65 year old female seen yesterday for intermittent chest pain x 2 weeks. Reports midsternal pain, occasional radiation to upper back, increases with eating, seemed to be better at night when laying in bed. No specific exertional correlation. Not accompanied by SOA, nausea or diaphoresis. C/o hearburn. EKG showed ST 115, poor R wave progression and nonspecific ST changes. She was pain free at time and no other EKG was available for comparison. Treated for possible GERD, PPI started, symptoms concerning for possible cardiac etiology given her EKG changes and tachycardia. Sent for labs, troponin 0.14, Glucose 356, A1C 14. New diabetes diagnosis. Patient was advised to repeat troponin in the am and come to office. Troponin 0.56. Called cardiology [facility]ani to see if we would be able to admit, given [facility] being on divert. Recommended to send to ED where they will evaluate and cath later today. Patient taken to cathlab, one stent placed in LAD. Found to have severe anterior apical hypokinesis with EF 35%. Pre-procedure COVID-19 PCR was positive. Admit to Medsur unit with telemetry for monitoring and further evaluation. Hospital Course Hospital Course: 65-year-old female with uncontrolled diabetes, NSTEMI, obesity, and uncontrolled hypertension. Cardiology consulted, taken to the [facility] urgently yesterday for intervention. Status post 1 SLADE in the mid LAD. Echo obtained showing EF of 30%. Clinically stable this morning. No acute cardiac events. Stable on room air. Medically stable for discharge home. Examined on day of discharge. Problems addressed during hospitalization as follows: CAD NSTEMI Heart failure with reduced ejection fraction -Taken to [facility] urgently after arrival, critical stenosis in the mid LAD. Severe hypokinesis of anterior and apical aspect of heart. Received One drug-eluting stent placed in the mid LAD, reduced occlusion to 0%. Cardiology recommends Brilinta 90 mg twice a day. Aspirin daily. LDL goal less than 55. Avoidance of tobacco. Formal echo obtained with EF of 30%, will need LifeVest prior to discharge due to risk of sudden cardiac . LifeVest delivered to bedside today. Discussed importance with patient. Extensive counseling on need to wear LifeVest unless she is showering. Initiated on Entresto and carvedilol. Increased carvedilol to 12.5 mg twice daily given continued hypertension. Close follow-up to monitor response to blood pressure medication Word finding difficulty TIA - CT Head: Atrophy and moderate periventricular chronic ischemic changes. No acute intracranial abnormality identified. Carotid duplex: Less than 50% occlusion bilaterally. No significant flow-limiting lesions noted. Differential diagnosis includes medication side effect from [facility], hypertensive urgency, metabolic encephalopathy, or TIA. Symptoms resolved, Otherwise normal neuro exam Diabetes -A1c greater than 14. Tolerating sliding scale insulin and basal insulin. Will increase basal insulin for home and have that be her only therapy for now. Increase to 30 units of Lantus. Sent home with pen. Would benefit from initiating additional medication in the outpatient setting such as Farxiga or a GLP-1 antagonist. Will need glucometer and supplies ordered from our office as an outpatient. Address at follow-up COVID-19 -Incidental finding on admission. Patient asymptomatic. Monitored for respiratory symptoms, remained stable on room air. Isolation for COVID-19. Overall has done well. Close follow-up with primary care and cardiology. Objective Vital signs: Temp Pulse Resp BP Pulse Ox 98.7 F 106 H 18 149/85 H 94 L 04/10/21 08:52 04/10/21 08:52 04/10/21 08:52 04/10/21 08:52 04/10/21 08:52 Narrative: - Constitutional no acute distress, obese - *Routine HEENT Exam Head: Present: normocephalic Eye: Present: EOMI,
[2021-04-10 12:00] VITALS: BP 115/69; PULSE 101; RESP 18; TEMP 36.8; O2SAT 96
--- NOTE | 2021-04-10 13:34 | PC.NURSE ---
Spoke with PT her cannot get here till between 2-3 to get her. I have everything ready for discharge once family member is here.
--- NOTE | 2021-04-10 14:30 | HMH.PHACLD ---
Sulema Navas Shayshamir has received discharge medication counseling on the following medications: PATIENT IS BEING DISCHARGED WITH NEW PRESCRIPTIONS FOR ENTRESTO 24/26 MG BID, LIPITOR 80 MG HS, ASPIRIN 81 MG EC DAILY, BRILINTA 90 MG BID, AND CARVEDILOL 12.5 MG BID.
[2021-04-11 11:54] LABS: POC Glucose,Bedside 329 (70-110)
[2021-04-11 21:56] LABS: POC Glucose,Bedside 321 (70-110)
== END 2021-04-10 14:56 | disposition home or self-care (01) | DRG 248 ==
LOC: ER 11:48 → 2ND 11:56 → CATHLAB 13:12 → 2ND 13:53
PROVIDERS: Internal Medicine; Admitting Provider Internal Medicine Adolescent Medicine; Emergency Provider Emergency Medicine; PCP Nurse Practitioner Family; Visit Provider Internal Medicine Adolescent Medicine
PROC: 02703DZ Dilation of Coronary Artery, One Artery with Intraluminal Device, Percutaneous Approach (ICD-10-PCS; principal; 2021-04-08 13:30)
DX: I21.4 Non-ST elevation (NSTEMI) myocardial infarction (principal); U07.1 COVID-19; G45.9 Transient cerebral ischemic attack, unspecified; I25.119 Atherosclerotic heart disease of native coronary artery with unspecified angina pectoris; E66.9 Obesity, unspecified; Z68.30 Body mass index [BMI] 30.0-30.9, adult; I10 Essential (primary) hypertension; E78.5 Hyperlipidemia, unspecified; E11.65 Type 2 diabetes mellitus with hyperglycemia; Z79.4 Long term (current) use of insulin
CPT/HCPCS: C9606; 36415; 70450; 71045; 80048; 80053; 82962; 83735; 83880; 84484; 85007; 85025; 85378; 92941; 93005; 93306; 93458; 93880; 99152; 99284; C1725; C1769; C1876; C9803; J1644; J2405; U0003; U0005

== ENCOUNTER 2021-04-27 09:56 | Outpatient (RCR) | payer MEDICARE, BC, SELFPAY | END 2021-04-27 09:59 | disposition home or self-care (01) | LOC: PT 09:56 | PROVIDERS: Visit Provider Internal Medicine | DX: I25.10 Atherosclerotic heart disease of native coronary artery without angina pectoris (principal); Z95.5 Presence of coronary angioplasty implant and graft | CPT/HCPCS: 93798 ==

== ENCOUNTER → 2021-05-05 09:14 | Outpatient (CLI) | payer MEDICARE, BC, SELFPAY ==
[2021-05-05 10:36] LABS: Anion Gap 14.5 mEq/L (5-15); Blood Urea Nitrogen 17 mg/dl (7-17); Calcium 9.3 mg/dl (8.4-10.2); Carbon Dioxide 25 mmol/L (22.0-30.0); Chloride 106 mmol/L (98-107); Estimated Glomerular Filt Rate 100 ml/min (>60); GFR (African American) 121 ML/MIN (>60); Glucose 155 mg/dl (74-100); Potassium 5.5 mmoL/L (3.5-5.1); Sodium 140 mmol/L (136-145)
== END ==
PROVIDERS: PCP Internal Medicine Adolescent Medicine; Visit Provider Internal Medicine
DX: E78.5 Hyperlipidemia, unspecified (principal); G45.9 Transient cerebral ischemic attack, unspecified; I21.4 Non-ST elevation (NSTEMI) myocardial infarction; I25.10 Atherosclerotic heart disease of native coronary artery without angina pectoris; I25.5 Ischemic cardiomyopathy; I50.20 Unspecified systolic (congestive) heart failure; R94.31 Abnormal electrocardiogram [ECG] [EKG]; Z95.810 Presence of automatic (implantable) cardiac defibrillator; I11.0 Hypertensive heart disease with heart failure
CPT/HCPCS: 36415; 80048; 93308

== ENCOUNTER → 2021-05-12 10:20 | Outpatient (CLI) | payer MEDICARE, BC, SELFPAY ==
[2021-05-12 11:41] LABS: Anion Gap 13.9 mEq/L (5-15); Blood Urea Nitrogen 20 mg/dl (7-17); Calcium 9.4 mg/dl (8.4-10.2); Carbon Dioxide 23 mmol/L (22.0-30.0); Chloride 106 mmol/L (98-107); Estimated Glomerular Filt Rate 100 ml/min (>60); GFR (African American) 121 ML/MIN (>60); Glucose 142 mg/dl (74-100); Potassium 4.9 mmoL/L (3.5-5.1); Sodium 138 mmol/L (136-145)
== END ==
PROVIDERS: Visit Provider Physician Assistant
DX: E78.2 Mixed hyperlipidemia (principal); G45.9 Transient cerebral ischemic attack, unspecified; I10 Essential (primary) hypertension; I21.4 Non-ST elevation (NSTEMI) myocardial infarction; I25.10 Atherosclerotic heart disease of native coronary artery without angina pectoris; R94.31 Abnormal electrocardiogram [ECG] [EKG]; Z95.5 Presence of coronary angioplasty implant and graft
CPT/HCPCS: 36415; 80048

== ENCOUNTER → 2021-06-16 09:56 | Outpatient (CLI) | payer MEDICARE, BC, SELFPAY ==
[2021-06-16 11:03] LABS: Basophils # 0.1 K/mm3 (0-0.2); Basophils % 0.5 % (0.1-2.0); Eosinophils # 0.2 K/mm3 (0.0-0.4); Eosinophils % 2.4 % (0.1-12.0); Hematocrit 42.9 % (37.0-47.0); Hemoglobin 13.4 g/dL (12.2-16.2); Lymphocytes # 1.6 K/mm3 (0.7-4.5); Lymphocytes % 16.9 % (10-50); Mean Corpuscular HGB Conc 31.2 g/dL (31.8-35.4); Mean Corpuscular Hemoglobin 28.7 pg (27.0-31.2); Mean Corpuscular Volume 92.2 fl (81-99); Mean Platelet Volume 8.3 fl (7.4-10.4); Monocytes # 0.5 K/mm3 (0.1-1.0); Monocytes % 4.9 % (1.7-9.3); Neutrophils # 7.1 K/mm3 (1.8-7.8); Neutrophils % 75.3 % (37.0-80.0); Platelet Count 492 K/mm3 (142-424); Red Blood Count 4.65 M/mm3 (4.20-5.40); Red Cell Distribution Width 14.7 % (11.5-17.5); White Blood Count 9.5 K/mm3 (4.8-10.8)
[2021-06-16 11:52] LABS: Chloride 109 mmol/L (98-107); Sodium 139 mmol/L (136-145)
[2021-06-16 11:54] LABS: Alanine Aminotransferase 23 U/L (12-78); Aspartate Amino Transferase 24 U/L (14-36); Bilirubin,Unconjugated 0.5 mg/dL (0.0-1.1); Blood Urea Nitrogen 17 mg/dl (7-17); Carbon Dioxide 22 mmol/L (22.0-30.0); Estimated Glomerular Filt Rate 84 ml/min (>60); GFR (African American) 102 ML/MIN (>60)
[2021-06-16 11:55] LABS: Albumin Level 3.7 g/dl (3.5-5.0); Alkaline Phosphatase 151 U/L (38-126); Bilirubin,Direct 0.1 mg/dl (0.0-0.4); Bilirubin,Indirect 0.5 mg/dL (0.0-0.9); Bilirubin,Total 0.6 mg/dl (0.2-1.3); Calcium 8.7 mg/dl (8.4-10.2); Chol/HDL Ratio 2.6 (1-3.5); Cholesterol 108 mg/dl (140-200); Glucose 137 mg/dl (74-100); HDL Cholesterol 42 mg/dl (40-60); Total Protein,Serum 6.1 g/dl (6.3-8.2); Triglycerides 137 mg/dl (30-150); VLDL Cholesterol 27 mg/dL (0-40)
[2021-06-16 12:07] LABS: Direct LDL Cholesterol 41.91 mg/dL (100-129)
[2021-06-16 12:12] LABS: Free T4 (Free Thyroxine) 0.97 ng/dl (0.78-2.19)
[2021-06-16 12:25] LABS: Thyroid Stimulating Hormone 1.55 uIU/mL (0.465-4.68)
== END ==
PROVIDERS: Visit Provider Physician Assistant
DX: E11.9 Type 2 diabetes mellitus without complications (principal); E78.2 Mixed hyperlipidemia; G45.9 Transient cerebral ischemic attack, unspecified; I21.4 Non-ST elevation (NSTEMI) myocardial infarction; I25.10 Atherosclerotic heart disease of native coronary artery without angina pectoris; I25.5 Ischemic cardiomyopathy; I50.20 Unspecified systolic (congestive) heart failure; I50.22 Chronic systolic (congestive) heart failure; R94.31 Abnormal electrocardiogram [ECG] [EKG]; I11.0 Hypertensive heart disease with heart failure; Z79.4 Long term (current) use of insulin
CPT/HCPCS: 36415; 80048; 80061; 80076; 84439; 84443; 85025

== ENCOUNTER → 2021-06-29 12:11 | Outpatient (CLI) | payer MEDICARE, BC, SELFPAY ==
[2021-06-29 12:55] LABS: Basophils # 0.1 K/mm3 (0-0.2); Basophils % 1.3 % (0.1-2.0); Eosinophils # 0.2 K/mm3 (0.0-0.4); Eosinophils % 1.8 % (0.1-12.0); Hematocrit 42.1 % (37.0-47.0); Hemoglobin 13.5 g/dL (12.2-16.2); Lymphocytes # 1.7 K/mm3 (0.7-4.5); Lymphocytes % 19.3 % (10-50); Mean Corpuscular HGB Conc 32.1 g/dL (31.8-35.4); Mean Corpuscular Hemoglobin 28.1 pg (27.0-31.2); Mean Corpuscular Volume 87.6 fl (81-99); Mean Platelet Volume 7.2 fl (7.4-10.4); Monocytes # 0.4 K/mm3 (0.1-1.0); Monocytes % 4.6 % (1.7-9.3); Neutrophils # 6.6 K/mm3 (1.8-7.8); Neutrophils % 72.9 % (37.0-80.0); Platelet Count 485 K/mm3 (142-424); Red Blood Count 4.81 M/mm3 (4.20-5.40); Red Cell Distribution Width 14.4 % (11.5-17.5)
[2021-06-29 13:08] LABS: Alanine Aminotransferase 18 U/L (12-78); Albumin Level 3.9 g/dl (3.5-5.0); Albumin/Globulin Ratio 1.6 (1.1-1.8); Alkaline Phosphatase 132 U/L (38-126); Anion Gap 14.6 mEq/L (5-15); Aspartate Amino Transferase 18 U/L (14-36); Bilirubin,Total 0.3 mg/dl (0.2-1.3); Blood Urea Nitrogen 18 mg/dl (7-17); Calcium 9.2 mg/dl (8.4-10.2); Carbon Dioxide 23 mmol/L (22.0-30.0); Chloride 105 mmol/L (98-107); Estimated Glomerular Filt Rate 84 ml/min (>60); GFR (African American) 102 ML/MIN (>60); Globulin 2.4 g/dL (1.3-3.2); Glucose 133 mg/dl (74-100); Hemoglobin A1C 7.2 % (4.0-6.0); Potassium 4.6 mmoL/L (3.5-5.1); Sodium 138 mmol/L (136-145); Total Protein,Serum 6.3 g/dl (6.3-8.2)
== END ==
PROVIDERS: PCP Internal Medicine Adolescent Medicine; Visit Provider Internal Medicine Adolescent Medicine
DX: I50.21 Acute systolic (congestive) heart failure (principal); I11.0 Hypertensive heart disease with heart failure; E11.9 Type 2 diabetes mellitus without complications; Z79.4 Long term (current) use of insulin
CPT/HCPCS: 36415; 80053; 83036; 85025

== ENCOUNTER 2021-07-30 23:12 | Emergency (ER) | payer MEDICARE, BC, SELFPAY ==
--- NOTE | 2021-07-30 23:30 | PC.NURSE ---
in room with nosebleed kit
[2021-07-30 23:39] VITALS: BP 177/101; PULSE 90; RESP 18; TEMP 37.2; O2SAT 97
--- NOTE | 2021-07-30 23:52 | HMH.EDEPIS ---
ED Disposition Clinical Impression: Epistaxis Disposition: Home, Self-Care Condition on Discharge: Good Instructions: DI for Nosebleed Additional Instructions: remove packing in am Referrals: Kevin Awad MD [Primary Care Provider] - - Critical Care Critical Care Time: No Attestation: On 07/30/21, the high probability of a clinically significant, sudden or life threatening deterioration of the following system(s) required my full and direct attention, intervention and personal management. The time I documented below is in addition to time spent performing reported procedures but includes the following listed in this critical care notation. Medical Decision Making - Medical Records Medical records reviewed: Yes: I reviewed the patient's medical records. - Arvin Inquiry Pt receiving controlled substance: No Vital Signs: 07/30/21 23:39 Temperature 98.9 F Temperature Source Oral Pulse Rate [Left] 90 Respiratory Rate 18 Blood Pressure [Right Arm] 177/101 H Blood Pressure Mean [Right Arm] 126 02 Sat by Pulse Oximetry 97 Oxygen Delivery Method Room Air Orders (Tests/Meds): ED MEDICATIONS Discontinued Medications Generic Name Dose Route Start Last Admin Trade Name Freq PRN Reason Stop Dose Admin Cocaine HCl 4 ml 07/30/21 23:34 07/30/21 23:45 Cocaine 4% Topical Soln 4ml Bottle TP 07/30/21 23:35 4 ml ONCE ONE Administration Oxymetazoline HCl 0.5 ml 07/30/21 23:37 07/30/21 23:46 Oxymetazoline Nasal Kismet 0.05% 15ml NS 07/30/21 23:38 1 inh ONCE ONE Administration Medical Decision Narrative: has rt nose bleed with packing Epistaxis HPI - General Chief complaint: Epistaxis Stated complaint: Nose Bleed [id number] Time Seen by Provider: 07/30/21 23:52 Mode of Arrival: Ambulatory Source of Information: Patient, Spouse, Medical Record Limitations: No Limitations Description of Symptoms (Recalled from ER Triage Doc. by RN): pt states she has had a nose bleed for aprox 4 hrs with out having it fully clot off - History of Present Illness HPI Narrative: atraumatic rt nares bleed - on antiplts treatment complaint: epistaxis Location: right nostril Onset (ago): hour(s) Duration: intermittent Context: aspirin use, other anticoagulant use Treatment prior to arrival: nose pinching, stuffed nose with tissue - Related Data Home Medications Medication Instructions Recorded Confirmed Cetirizine HCl [Zyrtec 10mg Tab*] 10 mg PO DAILY 04/08/21 06/16/21 Fluticasone Propionate [Flonase 1 spr NS DAILY 04/08/21 06/16/21 50mcg nasal spray 16gm] Omeprazole [Omeprazole 20mg 20 mg PO DAILY 04/08/21 06/16/21 Capsule] insulin glargine 100 35 unit SQ DAILY 04/14/21 06/16/21 unit-lixisenatide 33 mcg/mL subcutaneous pen Previous Rx's Medication Instructions Recorded Aspirin [Aspirin 81mg EC Tab] 81 mg PO DAILY 30 Days #30 tab 04/10/21 Insulin Glargine,Hum.rec.anlog 30 unit SQ HS 30 Days #3 pen needle 04/10/21 [Lantus Solostar 100 Units/mL 3mL flexpen] Ticagrelor [Brilinta 90mg 90 mg PO BID 30 Days #60 tab 04/10/21 Tablet] carvediloL [Coreg 12.5mg 12.5 mg PO BID 30 Days #60 tab 04/10/21 Tablet] atorvastatin 80 mg tablet 80 mg PO DAILY #90 tab 04/14/21 valsartan 160 mg tablet 160 mg PO BID #60 tab 05/05/21 blood pressure monitor See Rx Instructions .ROUTE #1 each 06/16/21 Allergies Allergy/AdvReac Type Severity Reaction Status Date / Time sulfamethoxazole Allergy Unknown Verified 06/16/21 09:32 [From BACTRIM] trimethoprim [From BACTRIM] Allergy Unknown Verified 06/16/21 09:32 fluconazole [From Diflucan] AdvReac Intermediate Verified 06/16/21 09:32 [facility] History - Hepatitis A Screen Attestation statement:: This patient has been screened for Hepatitis A risk factors. I have reviewed the patient's past medical history: Yes Medical History: Reports:: Diabetes Mellitus Type 2, Hyperlipidemia, Hypertension Denies
[2021-07-31 00:30] VITALS: BP 159/88; PULSE 89; RESP 18; TEMP 37.2; O2SAT 100
== END 2021-07-31 00:31 | disposition home or self-care (01) ==
PROVIDERS: Emergency Provider Emergency Medicine; PCP Internal Medicine Adolescent Medicine
DX: R04.0 Epistaxis (principal); D68.32 Hemorrhagic disorder due to extrinsic circulating anticoagulants; T45.525A Adverse effect of antithrombotic drugs, initial encounter; Z88.2 Allergy status to sulfonamides; Z88.8 Allergy status to other drugs, medicaments and biological substances; E11.9 Type 2 diabetes mellitus without complications; E78.5 Hyperlipidemia, unspecified; I10 Essential (primary) hypertension
CPT/HCPCS: 30901; 99283

== ENCOUNTER → 2021-10-24 13:48 | Outpatient (CLI) | payer MEDICARE, BC, SELFPAY ==
[2021-10-24 14:51] VITALS: BMI 29.7
== END ==
PROVIDERS: PCP Internal Medicine Adolescent Medicine; Visit Provider Nurse Practitioner Family
DX: Z71.3 Dietary counseling and surveillance (principal); E11.9 Type 2 diabetes mellitus without complications
CPT/HCPCS: 97802

== ENCOUNTER → 2021-12-26 07:15 | Outpatient (CLI) | payer MEDICARE, BC, SELFPAY ==
--- NOTE | 2021-12-26 | CA_ITS ---
APPROVED REPORT Exam: Pharmacologic Technologist: Janet Valenzuela, Ht: 5 ft 4 in Wt: 185 lbs BSA: 1.89 m2 HR: 76 bpm BP: 144/73 mmHg Medical History Medications: Omeprazole,,,,, Aspirin,,,,, Atorvastatin,,,,, Carvedilol,,,,, Glipizide,,,,, Ticagrelor,,,,, Valsartan,,,,, CetIRIZINE,,,,, SolIqua,,,,, Stress Test Details Test: LEXISCAN Reason for pharmacologic stress test: physical limitation. HR Resting HR: 88 bpm Max Heart Rate (APMHR): 155 bpm Max HR Achieved: 100 bpm Target HR (85% APMHR): 131 bpm % of APMHR: 64 Recovery HR: 88 bpm BP Resting BP: 144/73 mmHg Max BP: 151/59 mmHg Recovery BP: 133.0/66.0 mmHg ECG Resting ECG: SR Clinical Exercise duration: 04:00 min Highest Stage Achieved: Stress ECG Conclusion Symptom: SOB w/ Lexiscan. No chest pain. Arrhythmias/Ectopy: PVCs noted. ST-T Changes: <1.5mm ST segment depression. Conclusion: Electronically signed by : Gene Jimenez MD 12/26/2021 20:58:33
--- NOTE | 2021-12-26 07:16 | CA_ITS ---
APPROVED REPORT EXAM: Comprehensive 2D, Doppler, and color-flow Echocardiogram Agricultural Engineering Teacher: Sue Mayer, VERNA, RVS Ht: 5 ft 4 in Wt: 185lbs BSA: 1.89 BP: 130/72 mmHg Indications: CHF, CAD, CM, ABN EKG, DM, HTN, HLD 2D Dimensions IVSd 0.95 cm LVEF (Visual) 53.90 % PWd 0.91 cm LA Volume 67.90 mL LVDd 5.40 cm LA Volume Index 35.285216 mL/m2 (M/F) 16-34 LVDs 3.88 cm Aortic Root 2.47 cm Left Atrium 3.64 cm LVOT 1.96 cm (M/F) 1.5-2.5 M-Mode Dimensions LA Diam 3.48 cm (1.9-4.0) Ao Diam 2.65 cm (2.0-3.7) TAPSE 2.54 (<1.7) LV Diastology E Decel Time 200.00 (160-240 msec) E/A Ratio 0.96 MED E' 11.30 (< 7 cm/sec) MED A' 14.00 cm/s E'/MED E' Ratio 9.12 (>14) LAT E' 7.90 (<10 cm/sec) LAT A' 12.10 cm/s E/LAT E' Ratio 13.05 (>14) Aortic Valve LVOT Max 85.00 (70-110 cm/s) LVOT VTI 15.30 cm AoV Peak Nicola. 138.00 (50-130 cm/s) AO Peak GR. 7.70 mmHg AO Mean GR. 3.90 (<5 mmHg) AO VTI 30.17 (18-25 cm) KEO (VTI) 1.53 (2.5-4.5 cm2) Mitral Valve MV A Velocity 107.00 (40-130 cm/s) E/A Ratio 0.96 MV Decel. Time 200.00 (160-240 ms) MV PHT 57.00 ms Pulmonary Valve PV Peak Velocity 90.00 (50-150 cm/s) Tricuspid Valve TR P. Velocity 203.00 cm/s RAP Estimate 10.00 mmHg RVSP 26.50 mmHg Left Ventricle Left atrium is mildly enlarged, left ventricle is normal size, estimated ejection fraction 55% with no regional wall motion abnormality. Diastolic parameters are inconclusive. Right Ventricle Right atrium and right ventricle are normal size and contractility. Aortic Valve Aortic valve is minimally thickened and fibrosed there is no aortic stenosis or aortic insufficiency. Mitral Valve Mitral valve is grossly normal, there is trace mitral regurgitation. Tricuspid Valve Tricuspid valve grossly normal, there is trace tricuspid regurgitation, tricuspid regurgitation jet velocity is inadequate for calculation of the right ventricular systolic pressure. Pulmonic Valve Pulmonic valve is poorly visualized. Great Vessels Aortic root is normal size. Inferior vena cava is normal size with normal inspiratory collapse. Pericardium No significant pericardial effusion noted. Conclusion 1. Normal left ventricular size preserved left ventricular systolic function, estimated ejection fraction 55% with no regional wall motion abnormality diastolic parameters are inconclusive in the study. 2. Trace mitral and tricuspid regurgitation. 3. No significant pericardial effusion noted. 4. Inferior vena cava normal size with normal respiratory collapse. Electronically signed by : Gene Jimenez MD 12/26/2021 16:54:31
--- NOTE | 2021-12-26 07:21 | NM_ITS ---
APPROVED REPORT Exam: Nuclear Stress Test Indication: SOB, Fatigue, CAD, Hx of [place], HTN, DM, High cholesterol Patient Location: Outpatient Stress Tech: Janet Denton [place] Tech:Sharron Stallworth, ARRT, RT (R)(N) Ht: 5 ft 4 in Wt: 175 lbs Bra Size: D HR: 88 bpm BP: 144/73 mmHg BSA: 1.85 m2 TID: 1.17 BMI: 30.0 History: SOB, Fatigue, CAD, Hx of [place], HTN, DM, High cholesterol Procedure: Patient received a 0.4 mg of intravenous Lexiscan, resting heart rate 88 bpm, resting blood pressure 144/73 mmHg, with Lexiscan maximum heart rate achived was 100 bpm which is Less than 85 % of the maximum predicted heart rate and blood pressure was 151/59 mmHg. With Lexiscan, patient denied any complaint of chest pain. Electrocardiogram Resting electrocardiogram shows sinus rhythm nonspecific ST-T changes, with Lexiscan there is less than 1.[address] segment depression noted from the baseline EKG. The EKG portion of the Lexiscan is nondiagnostic. Cardiac Stress and Resting SPECT Images: Cardiac Stress and Resting SPECT images were obtained using technetium 99m Myoview 30.8 mCi stress and 10.58 mCi at rest. Gated SPECT for analysis of segmental wall motion and calculation of the ejection fraction also done. Prone images were also obtained. Cardiac stress and rest images show uniform myocardial activity without segmental perfusion abnormality, computer derived ejection fraction is 60% with no regional wall motion abnormality, right ventricle is normal size and contractility. Conclusion: 1. The EKG portion of the Lexiscan is nondiagnostic. 2. No scintigraphic evidence of reversible ischemia seen, computer derived ejection fraction is 60% with no regional wall motion abnormality, right ventricle is normal size and contractility. 3. Normal Lexiscan Myoview study. Electronically signed by : Gene Jimenez MD 12/26/2021 21:01:30
--- NOTE | 2021-12-26 08:50 | HMH.ITSHM ---
Current Home Medications as stated by this patient Sulema Lemons or account maintenance representative. []VALSARTAN TICAGRELOR OMEPRAZOLE INSULIN GLIPIZIDE FLUTICASONE CETIRIZINE CARVEDILOL ATORVASTATIN ASA
[2021-12-26 11:11] LABS: Basophils % 0.4 % (0.1-2.0); Eosinophils # 0.2 K/mm3 (0.0-0.4); Eosinophils % 1.5 % (0.1-12.0); Hematocrit 23.9 % (37.0-47.0); Lymphocytes # 1.7 K/mm3 (0.7-4.5); Lymphocytes % 16.6 % (10-50); Mean Corpuscular HGB Conc 28.8 g/dL (31.8-35.4); Mean Corpuscular Hemoglobin 18.1 pg (27.0-31.2); Mean Corpuscular Volume 62.8 fl (81-99); Mean Platelet Volume 7.5 fl (7.4-10.4); Monocytes # 0.4 K/mm3 (0.1-1.0); Monocytes % 3.7 % (1.7-9.3); Neutrophils # 7.8 K/mm3 (1.8-7.8); Neutrophils % 77.8 % (37.0-80.0); Platelet Count 654 K/mm3 (142-424); Red Blood Count 3.81 M/mm3 (4.20-5.40); Red Cell Distribution Width 18.8 % (11.5-17.5)
[2021-12-26 11:35] LABS: Chloride 105 mmol/L (98-107); Potassium 4.8 mmoL/L (3.5-5.1); Sodium 138 mmol/L (136-145)
[2021-12-26 11:38] LABS: Alanine Aminotransferase 26 U/L (12-78); Albumin Level 3.8 g/dl (3.5-5.0); Alkaline Phosphatase 140 U/L (38-126); Anion Gap 15.8 mEq/L (5-15); Aspartate Amino Transferase 24 U/L (14-36); Bilirubin,Indirect 0.3 mg/dL (0.0-0.9); Bilirubin,Total 0.3 mg/dl (0.2-1.3); Bilirubin,Unconjugated 0.3 mg/dL (0.0-1.1); Blood Urea Nitrogen 18 mg/dl (7-17); Calcium 8.8 mg/dl (8.4-10.2); Carbon Dioxide 22 mmol/L (22.0-30.0); Estimated Glomerular Filt Rate 100 ml/min (>60); GFR (African American) 121 ML/MIN (>60); Glucose 158 mg/dl (74-100); Total Protein,Serum 5.9 g/dl (6.3-8.2)
[2021-12-26 11:49] LABS: Hemoglobin 6.9 g/dL (12.2-16.2)
[2021-12-26 12:11] LABS: Thyroid Stimulating Hormone 0.65 uIU/mL (0.465-4.68)
== END ==
PROVIDERS: PCP Nurse Practitioner Family; Visit Provider Nurse Practitioner Family
DX: E11.9 Type 2 diabetes mellitus without complications (principal); E78.2 Mixed hyperlipidemia; I25.10 Atherosclerotic heart disease of native coronary artery without angina pectoris; I25.5 Ischemic cardiomyopathy; I50.22 Chronic systolic (congestive) heart failure; R06.09 Other forms of dyspnea; R53.83 Other fatigue; R94.31 Abnormal electrocardiogram [ECG] [EKG]; I63.9 Cerebral infarction, unspecified; I11.0 Hypertensive heart disease with heart failure; Z79.4 Long term (current) use of insulin
CPT/HCPCS: 36415; 78452; 80048; 80076; 84439; 84443; 85025; 93017; 93306; A9502; J2785

== ENCOUNTER 2021-12-27 08:13 | Outpatient (CLI) | payer MEDICARE, BC, SELFPAY ==
[2021-12-27] VITALS (20 sets, daily range): BP systolic 121–156; BP diastolic 54–89; PULSE 81–96; RESP 16–18; TEMP 36.1–36.7; O2SAT 97–100; BMI 31.7
[2021-12-27 09:27] LABS: Reticulocyte % (Auto) 3.5 % (0.9-3.2)
[2021-12-27 09:47] LABS: Iron 14 ug/dL (37-170)
[2021-12-27 09:56] LABS: Total Iron Binding Capacity 530 ug/dL (265-497)
[2021-12-27 10:22] LABS: Vitamin B12 301 pg/mL (239-931)
[2021-12-27 10:38] LABS: Folate 6.79 ng/mL
[2021-12-27 11:25] LABS: Ferritin 3.84 ng/ml (11.1-264)
--- NOTE | 2021-12-27 17:25 | PC.NURSE ---
1426 Patient care assumed per BALBIR Llamas at this time/report given. Patient stable and tolerating blood transfusion well with no s/s transfusion reaction or problems noted.
== END 2021-12-27 16:27 | disposition home or self-care (01) ==
LOC: LAB 08:15 → INF 08:48
PROVIDERS: PCP Nurse Practitioner Family; Visit Provider Nurse Practitioner Family
DX: D50.8 Other iron deficiency anemias (principal)
CPT/HCPCS: 36430; 82607; 82728; 82746; 83540; 83550; 85044; 86850; P9016

== ENCOUNTER → 2021-12-30 13:16 | Outpatient (CLI) | payer MEDICARE, BC, SELFPAY ==
[2021-12-30 17:35] LABS: Occult Blood,Stool Negative (Negative)
== END ==
PROVIDERS: PCP Nurse Practitioner Family; Visit Provider Nurse Practitioner Family
DX: D50.8 Other iron deficiency anemias (principal)
CPT/HCPCS: 82272; G0328

== ENCOUNTER → 2022-01-02 08:40 | Outpatient (CLI) | payer MEDICARE, BC, SELFPAY ==
[2022-01-02 09:30] LABS: Reticulocyte % (Auto) 3.2 % (0.9-3.2)
[2022-01-02 11:07] LABS: Vitamin B12 372 pg/mL (239-931)
[2022-01-02 11:20] LABS: Folate 7.25 ng/mL
[2022-01-02 11:47] LABS: Iron 17 ug/dL (37-170)
[2022-01-02 11:56] LABS: Total Iron Binding Capacity 525 ug/dL (265-497)
[2022-01-02 12:23] LABS: Ferritin 7.96 ng/ml (11.1-264)
[2022-01-02 16:32] LABS: Basophils # 0.1 K/mm3 (0-0.2); Basophils % 0.5 % (0.1-2.0); Eosinophils # 0.3 K/mm3 (0.0-0.4); Eosinophils % 2.5 % (0.1-12.0); Hematocrit 33.1 % (37.0-47.0); Hemoglobin 9.8 g/dL (12.2-16.2); Lymphocytes % 18.7 % (10-50); Mean Corpuscular HGB Conc 29.7 g/dL (31.8-35.4); Mean Corpuscular Hemoglobin 20.9 pg (27.0-31.2); Mean Corpuscular Volume 70.4 fl (81-99); Monocytes # 0.5 K/mm3 (0.1-1.0); Monocytes % 4.8 % (1.7-9.3); Neutrophils # 7.7 K/mm3 (1.8-7.8); Neutrophils % 73.5 % (37.0-80.0); Platelet Count 583 K/mm3 (142-424); Red Cell Distribution Width 23.4 % (11.5-17.5); White Blood Count 10.5 K/mm3 (4.8-10.8)
[2022-01-03 07:15] LABS: Transferrin 400 mg/dL (192-364)
[2022-01-03 17:19] LABS: Folate, RBC 1447 ng/mL (>498); Hematocrit 33.1 % (34.0-46.6)
== END ==
PROVIDERS: PCP Nurse Practitioner Family; Visit Provider Nurse Practitioner Family
DX: D64.9 Anemia, unspecified (principal); I50.20 Unspecified systolic (congestive) heart failure; E11.9 Type 2 diabetes mellitus without complications; Z79.4 Long term (current) use of insulin
CPT/HCPCS: 36415; 82607; 82728; 82746; 82747; 83036; 83540; 83550; 84466; 85014; 85025; 85044

== ENCOUNTER 2022-02-08 12:19 | Day surgery (SDC) | payer MEDICARE, BC, SELFPAY ==
[2022-01-26 12:25] VITALS: BMI 32.9
[2022-02-08] VITALS (7 sets, daily range): BP systolic 88–175; BP diastolic 49–93; PULSE 92–102; RESP 16–18; TEMP 36.6–36.7; O2SAT 91–96
[2022-02-08 13:29] LABS: POC Glucose,Bedside 121 (70-110)
--- NOTE | 2022-02-08 14:02 | EXP.ANES.CKL ---
[facility] Disclaimer: The information contained in this section may have been updated after the patient was seen, as this information can be updated by other users. Medical History Anemia CAD (coronary artery disease) DM type 2 (diabetes mellitus, type 2) HLD (hyperlipidemia) HTN (hypertension) NSTEMI (non-ST elevated myocardial infarction) TIA (transient ischemic attack) Surgical History H/O heart artery stent History of appendectomy History of cardiac catheterization History of hysterectomy History of tonsillectomy and adenoidectomy Family History Other No significant family history Social History Smoking Status: Never smoker alcohol intake: never substance use type: denies use current occupational status: retired Travel in the last 8 weeks: Inside the [place] household members: spouse housing: house marital status: caffeine: Yes special meli needs: No agree to transfusion: No do you feel safe at home: Yes victim of emotional abuse: No victim of sexual abuse: No would you like helpful sources: No [facility] Anesthesia Checklist Patient Identification Patient Identification: Arm Band and Verbal (Name & ) Structural Data Admitted From: Home Planned Operative Procedure/s: EGD/Colonoscopy Consent for Planned Operative Procedure(s) Verified: Yes NPO Status Verified Time NPO: 00:00 Airway Assessment C-Spine Mobility Assessed: Yes TMJ Mobility Assessed: Yes Dentition: Good Dentition Neurological Assessment Level of Consciousness: Awake Hx Seizures: No Numbness or tingling in extremities: No Anesthesia Plan Anesthesia Risk discussed: Yes Anesthesia Plan: Verified ASA Class: III Anesthesia Type: MAC
--- NOTE | 2022-02-08 14:38 | HMH.SCOPE ---
Procedure: Date: 02/08/22 Patient Date of :: 1955 Procedure Performed:: EGD Indications:: Iron deficiency anemia Performing Provider:: Catrachito Ferrara MD Referring Provider:: Barbara Zuluaga APRN Sedation:: See RN records Procedure:: The gastroscope was gently passed through the incisoral orifice into the oral cavity and under direct visualization the esophagus was intubated. The endoscope was passed down the esophagus, through the stomach, and into the duodenum. Color, texture, mucosa, and anatomy of the esophagus, stomach, and duodenum were carefully examined with the scope. Findings:: Oropharynx: normal Esophagus: normal EG Junction: intact at 38 cm Cardia: normal Fundus: Hematin stained mucosa Body: Gastritis, hematin stained mucosa. Biopsies obtained Antrum: Gastritis. Biopsies obtained Duodenal bulb: normal Duodenum (second and third portion): normal Impression: Hemorrhagic gastritis Recommendations:: Await pathology results Avoid NSAIDs Increase pantoprazole to 40 mg two times per day for 3 months, then take once daily Complications:: None Estimated blood obtained (mL): 0
--- NOTE | 2022-02-08 14:40 | HMH.SCOPE ---
Procedure: Date: 02/08/22 Patient Date of :: 1955 Procedure Performed:: Colonoscopy Indications:: Iron deficiency anemia. The patient denies history of overt GI bleeding Performing Provider:: Catrachito Ferrara MD Referring Provider:: Barbara Zuluaga APRN Sedation:: See RN records Procedure:: After placing the patient in the left lateral decubitus position, the colonoscopy was gently inserted into the rectum and under direct visualization advanced to the cecum which was identified by transillumination in the right lower quadrant, identification of the ileocecal valve, appendiceal orifice, and cecal strap. Color, texture, mucosa, and anatomy of the colon were carefully examined with the scope. Findings:: Anal canal: normal Rectum: normal Sigmoid colon: Fair preparation. Diverticulosis Descending colon: Two diminutive polyps. Removed with cold forceps Splenic flexure: normal Transverse colon: normal without polyps or inflammatory changes Hepatic flexure: normal Ascending colon: Fair preparation Cecum: Fair preparation Terminal ileum: not visualized Impression: Polyps of descending colon Recommendations:: Await pathology results Repeat colonoscopy in 5 years Complications:: none Estimated blood obtained (mL): 0
== END 2022-02-08 15:20 | disposition home or self-care (01) ==
PROVIDERS: PCP Nurse Practitioner Family; Visit Provider Internal Medicine
PROC: 0DJ08ZZ Inspection of Upper Intestinal Tract, Via Natural or Artificial Opening Endoscopic (ICD-10-PCS; CPT 43235; principal; 2022-02-08 13:30)
DX: D50.9 Iron deficiency anemia, unspecified (principal); D12.4 Benign neoplasm of descending colon; E11.9 Type 2 diabetes mellitus without complications
CPT/HCPCS: 43239; 45380; 82962; 88305; J2704

== ENCOUNTER 2022-02-14 09:59 | Outpatient (CLI) | payer MEDICARE, BC, SELFPAY ==
[2022-02-14 10:20] VITALS: BP 160/95; PULSE 81; RESP 18; O2SAT 97
[2022-02-14 11:00] VITALS: BP 182/85; PULSE 74; RESP 18; O2SAT 98
== END 2022-02-14 11:03 | disposition home or self-care (01) ==
LOC: INF 10:01
PROVIDERS: PCP Nurse Practitioner Family; Visit Provider Internal Medicine Medical Oncology
DX: D50.9 Iron deficiency anemia, unspecified (principal)
CPT/HCPCS: 96365; J1439

== ENCOUNTER 2022-02-21 09:52 | Outpatient (CLI) | payer MEDICARE, BC, SELFPAY ==
[2022-02-21 10:35] VITALS: BP 156/91; PULSE 81; RESP 18; TEMP 36.2; O2SAT 97
[2022-02-21 11:00] VITALS: BP 147/86; PULSE 80; RESP 18; O2SAT 97
== END 2022-02-21 11:05 | disposition home or self-care (01) ==
LOC: INF 09:52
PROVIDERS: PCP Nurse Practitioner Family; Visit Provider Internal Medicine Medical Oncology
DX: D50.9 Iron deficiency anemia, unspecified (principal)
CPT/HCPCS: 96365; J1439

== ENCOUNTER → 2022-03-15 13:14 | Outpatient (CLI) | payer MEDICARE, BC, SELFPAY ==
[2022-03-15 14:16] LABS: Basophils # 0.1 K/mm3 (0-0.2); Basophils % 0.9 % (0.1-2.0); Eosinophils # 0.2 K/mm3 (0.0-0.4); Eosinophils % 2.8 % (0.1-12.0); Hematocrit 48.6 % (37.0-47.0); Hemoglobin 15.4 g/dL (12.2-16.2); Lymphocytes % 24.4 % (10-50); Mean Corpuscular HGB Conc 31.7 g/dL (31.8-35.4); Mean Corpuscular Hemoglobin 25.7 pg (27.0-31.2); Mean Corpuscular Volume 81.2 fl (81-99); Mean Platelet Volume 8.1 fl (7.4-10.4); Monocytes # 0.3 K/mm3 (0.1-1.0); Monocytes % 3.7 % (1.7-9.3); Neutrophils # 5.6 K/mm3 (1.8-7.8); Neutrophils % 68.2 % (37.0-80.0); Platelet Count 341 K/mm3 (142-424); Red Blood Count 5.98 M/mm3 (4.20-5.40); Red Cell Distribution Width 24.7 % (11.5-17.5); White Blood Count 8.2 K/mm3 (4.8-10.8)
[2022-03-15 14:57] LABS: Iron 98 ug/dL (37-170)
[2022-03-15 15:07] LABS: Total Iron Binding Capacity 313 ug/dL (265-497)
[2022-03-15 15:34] LABS: Ferritin 499 ng/ml (11.1-264)
== END ==
PROVIDERS: PCP Nurse Practitioner Family; Visit Provider Internal Medicine Medical Oncology
DX: D50.9 Iron deficiency anemia, unspecified (principal)
CPT/HCPCS: 36415; 82728; 83540; 83550; 85025

== ENCOUNTER → 2022-09-12 09:22 | Outpatient (CLI) | payer MEDICARE, BC, SELFPAY ==
[2022-09-12 09:56] LABS: Basophils % 0.5 % (0.1-2.0); Eosinophils # 0.2 K/mm3 (0.0-0.4); Eosinophils % 2.8 % (0.1-12.0); Hematocrit 43.4 % (37.0-47.0); Hemoglobin 14.1 g/dL (12.2-16.2); Lymphocytes # 1.9 K/mm3 (0.7-4.5); Lymphocytes % 23.6 % (10-50); Mean Corpuscular HGB Conc 32.5 g/dL (31.8-35.4); Mean Corpuscular Hemoglobin 28.7 pg (27.0-31.2); Mean Corpuscular Volume 88.4 fl (81-99); Mean Platelet Volume 7.7 fl (7.4-10.4); Monocytes # 0.4 K/mm3 (0.1-1.0); Monocytes % 4.6 % (1.7-9.3); Neutrophils # 5.4 K/mm3 (1.8-7.8); Neutrophils % 68.6 % (37.0-80.0); Platelet Count 322 K/mm3 (142-424); Red Blood Count 4.91 M/mm3 (4.20-5.40); Red Cell Distribution Width 13.3 % (11.5-17.5); White Blood Count 7.9 K/mm3 (4.8-10.8)
[2022-09-12 10:15] LABS: Iron 56 ug/dL (37-170)
[2022-09-12 10:24] LABS: Total Iron Binding Capacity 325 ug/dL (265-497)
[2022-09-12 10:52] LABS: Ferritin 96.1 ng/ml (11.1-264)
== END ==
PROVIDERS: PCP Nurse Practitioner Family; Visit Provider Internal Medicine Medical Oncology
DX: D50.9 Iron deficiency anemia, unspecified (principal)
CPT/HCPCS: 36415; 82728; 83540; 83550; 85025

== ENCOUNTER → 2022-12-25 09:31 | Outpatient (CLI) | payer MEDICARE, BC, SELFPAY ==
[2022-12-25 09:45] LABS: Basophils # 0.1 K/mm3 (0-0.2); Basophils % 0.5 % (0.1-2.0); Eosinophils # 0.2 K/mm3 (0.0-0.4); Eosinophils % 2.7 % (0.1-12.0); Hematocrit 46.8 % (37.0-47.0); Hemoglobin 15.7 g/dL (12.2-16.2); Lymphocytes # 1.8 K/mm3 (0.7-4.5); Mean Corpuscular HGB Conc 33.5 g/dL (31.8-35.4); Mean Corpuscular Hemoglobin 29.5 pg (27.0-31.2); Mean Corpuscular Volume 88.1 fl (81-99); Mean Platelet Volume 7.4 fl (7.4-10.4); Monocytes # 0.4 K/mm3 (0.1-1.0); Monocytes % 4.3 % (1.7-9.3); Neutrophils # 6.5 K/mm3 (1.8-7.8); Neutrophils % 72.6 % (37.0-80.0); Platelet Count 302 K/mm3 (142-424); Red Blood Count 5.31 M/mm3 (4.20-5.40); Red Cell Distribution Width 14.5 % (11.5-17.5)
[2022-12-25 10:17] LABS: Chloride 106 mmol/L (98-107)
[2022-12-25 10:18] LABS: Potassium 4.8 mmoL/L (3.5-5.1); Sodium 140 mmol/L (136-145)
[2022-12-25 10:20] LABS: Alanine Aminotransferase 30 U/L (12-78); Albumin Level 4.3 g/dl (3.5-5.0); Alkaline Phosphatase 126 U/L (38-126); Anion Gap 11.8 mEq/L (5-15); Aspartate Amino Transferase 30 U/L (14-36); Bilirubin,Direct 0.2 mg/dl (0.0-0.4); Bilirubin,Indirect 0.5 mg/dL (0.0-0.9); Bilirubin,Total 0.7 mg/dl (0.2-1.3); Bilirubin,Unconjugated 0.5 mg/dL (0.0-1.1); Blood Urea Nitrogen 17 mg/dl (7-17); Carbon Dioxide 27 mmol/L (22.0-30.0); Cholesterol 150 mg/dl (140-200); Estimated Glomerular Filt Rate 84 ml/min (>60); GFR (African American) 101 ML/MIN (>60); Total Protein,Serum 6.7 g/dl (6.3-8.2); Triglycerides 159 mg/dl (30-150); VLDL Cholesterol 32 mg/dL (0-40)
[2022-12-25 10:21] LABS: Calcium 9.2 mg/dl (8.4-10.2); Chol/HDL Ratio 3.3 (1-3.5); Glucose 119 mg/dl (74-100); HDL Cholesterol 45 mg/dl (40-60); Magnesium 2.1 mg/dl (1.6-2.3)
[2022-12-25 10:32] LABS: Direct LDL Cholesterol 72.59 mg/dL (100-129)
[2022-12-25 10:37] LABS: Free T4 (Free Thyroxine) 0.96 ng/dl (0.78-2.19)
[2022-12-25 10:52] LABS: Thyroid Stimulating Hormone 1.18 uIU/mL (0.465-4.68)
== END ==
PROVIDERS: PCP Nurse Practitioner Family; Visit Provider Nurse Practitioner
DX: E78.5 Hyperlipidemia, unspecified (principal); I10 Essential (primary) hypertension; Z79.899 Other long term (current) drug therapy
CPT/HCPCS: 36415; 80048; 80061; 80076; 83735; 84439; 84443; 85025

== ENCOUNTER 2023-03-15 09:41 | Outpatient (CLI) | payer MEDICARE, BC, SELFPAY ==
[2023-03-15 09:49] VITALS: BMI 35.9
--- NOTE | 2023-03-15 10:04 | PC.NURSE ---
03/15/2023 0957 pt presents today prior to oncology md appt for labs. Venipuncture performed using a butterfly access needle to pt's lt ac x 1 stick-blood drawn for labs as ordered. Specimens sent to lab for analysis. Site seucred once needle was withdrawn using 2x2 gauze and coban.
[2023-03-15 10:05] LABS: Basophils # 0.1 K/mm3 (0-0.2); Basophils % 0.5 % (0.1-2.0); Eosinophils # 0.2 K/mm3 (0.0-0.4); Eosinophils % 2.3 % (0.1-12.0); Hematocrit 47.4 % (37.0-47.0); Hemoglobin 15.7 g/dL (12.2-16.2); Lymphocytes # 2.1 K/mm3 (0.7-4.5); Lymphocytes % 20.5 % (10-50); Mean Corpuscular HGB Conc 33.2 g/dL (31.8-35.4); Mean Corpuscular Hemoglobin 28.7 pg (27.0-31.2); Mean Corpuscular Volume 86.7 fl (81-99); Mean Platelet Volume 7.8 fl (7.4-10.4); Monocytes # 0.4 K/mm3 (0.1-1.0); Monocytes % 4.2 % (1.7-9.3); Neutrophils # 7.3 K/mm3 (1.8-7.8); Neutrophils % 72.5 % (37.0-80.0); Platelet Count 297 K/mm3 (142-424); Red Blood Count 5.47 M/mm3 (4.20-5.40); Red Cell Distribution Width 14.6 % (11.5-17.5); White Blood Count 10.1 K/mm3 (4.8-10.8)
[2023-03-15 10:14] LABS: Iron 84 ug/dL (37-170)
[2023-03-15 10:23] LABS: Total Iron Binding Capacity 391 ug/dL (265-497)
[2023-03-15 10:51] LABS: Ferritin 36.6 ng/ml (11.1-264)
== END 2023-03-15 10:08 | disposition home or self-care (01) ==
PROVIDERS: PCP Nurse Practitioner Family; Visit Provider Internal Medicine Medical Oncology
DX: T45.4X5A Adverse effect of iron and its compounds, initial encounter; D50.8 Other iron deficiency anemias
CPT/HCPCS: 36415; 82728; 83540; 83550; 85025

== ENCOUNTER 2023-06-28 08:22 | Outpatient (CLI) | payer MEDICARE, BC, SELFPAY ==
--- NOTE | 2023-06-28 08:27 | XR_ITS ---
FINAL REPORT TECHNIQUE: Bone mineral density was calculated of the lumbar spine and hip. CLINICAL HISTORY: POST MENOPAUSAL COMPARISON: None FINDINGS: Using L1-4, the bone mineral density of the spine is 1.155 g/cm2, corresponding to T-score of 1.0. Using the left hip, the bone mineral density of the femoral neck is 0.794 g/cm2, corresponding to a T-score of -0.5. Using the right hip, the bone mineral density of the femoral neck is 0.746 g/cm?, corresponding to a T-score of -0.9. NOTE: T-score: Standard deviation compared with peak bone mass of young adult mean. *Following the recommendations of the International Society of Bone densitometry, classification of hip BMD is based on the lower of two T-scores; total hip or femoral neck. IMPRESSION: Normal bone mineral density of the lumbar spine and bilateral hips. Reviewed, Interpreted and Dictated by Buddy Gamboa MD Transcribed by Betty Morris Authenticated and [facility]
--- NOTE | 2023-06-28 08:27 | MM_ITS ---
PROCEDURE INFORMATION: Exam: MG Bilateral Screening 3D Mammography Exam date and time: 06/28/2023 8:32 AM Age: 68 years old Clinical indication: Screening. No family history of breast cancer. TECHNIQUE: Imaging protocol: Bilateral Screening tomosynthesis and 2D mammography including computer-aided detection (CAD) when performed. COMPARISON: MG DMSB DIG MAMM-SCREEN SHONNA 08/28/2014 8:39 AM FINDINGS: MAMMOGRAPHY: Breast composition: There are scattered areas of fibroglandular density. Mass: Questionable oval 0.7 cm mass/circumscribed asymmetry in the upper left breast posterior 3rd, 13-14 cm from the nipple, MLO view only, image 02/26/2005 for frame 26. Architectural distortion: None. Calcifications: No suspicious calcifications. Asymmetric density: None. Skin thickening: None. Axillary adenopathy: None. IMPRESSION: Patient will be recalled for left diagnostic mammography with spot compression in left MLO, full field lateral left sonography with attention to the upper left breast, for further evaluation of questionable left breast mass. ASSESSMENT: BI-RADS Category 0: Incomplete: Need Additional Imaging Evaluation and/or Prior Mammograms for Comparison
== END 2023-06-28 23:59 | disposition home or self-care (01) ==
LOC: RAD 08:23
PROVIDERS: PCP Nurse Practitioner Family; Visit Provider Nurse Practitioner Family
DX: Z12.31 Encounter for screening mammogram for malignant neoplasm of breast (principal); Z78.0 Asymptomatic menopausal state; N64.89 Other specified disorders of breast; Z13.820 Encounter for screening for osteoporosis
CPT/HCPCS: 77063; 77067; 77080

== ENCOUNTER 2023-07-09 14:46 | Outpatient (CLI) | payer MEDICARE, BC, SELFPAY ==
--- NOTE | 2023-07-09 14:54 | MM_ITS ---
PROCEDURE INFORMATION: Exam: US Left Breast, Complete MG Left Diagnostic Breast Tomosynthesis Exam date and time: 07/09/2023 2:48 PM Age: 68 years old Clinical indication: Patient recalled on the basis of a screening mammogram for further evaluation; Left breast; mass TECHNIQUE: Imaging protocol: Complete ultrasound of all four quadrants of the left breast and the retroareolar regions, including ultrasound of the axilla when performed. Left Diagnostic tomosynthesis and 2D mammography including computer-aided detection (CAD) when performed. Unilateral or bilateral exam. COMPARISON: 1. MG MM DIG SCREENING MAMM BI W/CAD 06/28/2023 8:32 AM 2. MG DMSB DIG MAMM-SCREEN SHONNA 08/28/2014 8:39 AM FINDINGS: MAMMOGRAPHY: Breast composition: There are scattered areas of fibroglandular density (based on the most recent screening mammogram report). Breast mammogram findings: Digital diagnostic spot compression views of the left breast and 90 degree lateral view of the left breast demonstrate normal overlapping fibroglandular structures without persistent mass or asymmetry identified. ULTRASOUND: Breast ultrasound findings: Sonographic images of the left breast including the retroareolar region, all 4 quadrants and the axilla do not demonstrate any solid or cystic masses. Cursors were placed over normal fibroglandular structures in the upper-outer quadrant. No architectural distortion or acoustical shadowing. No skin thickening or axillary adenopathy. IMPRESSION: No mammographic or sonographic evidence of malignancy. Annual bilateral mammographic screening is recommended unless otherwise clinically indicated. ASSESSMENT: BI-RADS Category 1: Negative.
== END 2023-07-09 23:59 | disposition home or self-care (01) ==
LOC: RAD 14:47
PROVIDERS: PCP Nurse Practitioner Family; Visit Provider Nurse Practitioner Family
DX: R92.8 Other abnormal and inconclusive findings on diagnostic imaging of breast (principal)
CPT/HCPCS: 76641; 77061; 77065; G0279

== ENCOUNTER 2024-05-21 12:48 | Outpatient (CLI) | payer MEDICARE, BC, SELFPAY ==
--- NOTE | 2024-05-21 12:56 | CA_ITS ---
APPROVED REPORT EXAM: Comprehensive 2D, Doppler, and color-flow Echocardiogram Metal Drilling Machine Operator: VERNA Stallworth, RVS Ht: 5 ft 4 in Wt: 202lbs BSA: 1.96 BP: 166/98 mmHg Indications: HF, CAD, HTN, HLD, Hx-TIA 2D Dimensions Left Atrium 2.80 cm LA Volume 60.40 mL LA Volume Index 30.00 mL/m2 (M/F) 16-34 M-Mode Dimensions RVDd 1.91 cm (0.9-2.6) LA Diam 3.51 cm (1.9-4.0) LVDd 4.57 cm (3.5-5.7) LVDs 2.82 cm (3.5-5.7) IVSd 1.11 cm (0.6-1.1) PWd 0.95 cm (0.6-1.1) EF (Teich) 68.60% EPSs 0.61 cm FS 38.30% EDV (Teich) 95.90 mL TAPSE 2.26 (<1.7) ESV (Teich) 30.10 mL LV Diastology E Decel Time 107 (160-240 msec) E/A Ratio 0.72 MED A' 8.70 cm/s LAT A' 10.30 cm/s Aortic Valve KEO Index 0.87 cm2/m2 AoV Peak Nicola. 117.0 (50-130 cm/s) AO Peak GR. 5.50 mmHg AO Mean GR. 2.80 (<5 mmHg) AO VTI 22.0 (18-25 cm) KEO (VTI) 1.75 (2.5-4.5 cm2) Mitral Valve MV A Velocity 101.0 (40-130 cm/s) E/A Ratio 0.72 Tricuspid Valve TR P. Velocity 146.00 cm/s Left Ventricle The left ventricle is normal size. The left ventricular systolic function is normal. The left ventricular ejection fraction is within the normal range. There is increased LV wall thickness. There is normal LV segmental wall motion. Transmitral Doppler flow pattern suggests impaired LV relaxation. LVEF is 55%. Right Ventricle The right ventricle is normal size. The right ventricular systolic function is normal. Atria The left atrium size is normal. The right atrium size is normal. There is no Doppler evidence of interatrial shunt. Aortic Valve Aortic valve is mildly thickened. There is no aortic valvular stenosis. No aortic regurgitation is present. Mitral Valve The mitral valve is normal in structure. No evidence of mitral valve stenosis. Trace mitral regurgitation. Tricuspid Valve Tricuspid valve is grossly normal in structure and function. Trace tricuspid regurgitation. There is insufficient TR jet to estimate RVSP. Pulmonic Valve The pulmonary valve is normal in structure. Trace pulmonic regurgitation. Great Vessels The aortic root is normal in size. IVC is normal in size and collapses >50% with inspiration. Pericardium Trivial, anterior pericardial effusion is present. No echo indications of tamponade. Other Information Study Quality: Fair Conclusion Normal biventricular systolic function. No significant valvular stenosis or regurgitation. Trivial, anterior pericardial effusion is present. No echo indications of tamponade. Electronically signed by : Aimee Laguna MD 06/01/2024 23:30:27
== END 2024-05-21 23:59 | disposition home or self-care (01) ==
LOC: RT 12:50
PROVIDERS: PCP Nurse Practitioner Family; Visit Provider Physician Assistant
DX: I25.5 Ischemic cardiomyopathy (principal); I50.22 Chronic systolic (congestive) heart failure; I50.32 Chronic diastolic (congestive) heart failure
CPT/HCPCS: 93306

== ENCOUNTER 2024-10-07 14:05 | Outpatient (CLI) | payer MEDICARE, BC, SELFPAY ==
--- NOTE | 2024-10-07 14:12 | XR_ITS ---
FINAL REPORT CLINICAL HISTORY: left hip pain COMPARISON: None FINDINGS: LEFT HIP: Two views of the left hip with an AP view of the pelvis demonstrate no acute fracture or dislocation. The joint spaces appear normal. The visualized bony structures are well aligned. No soft tissue abnormality is seen. IMPRESSION: No acute bony abnormality. Reviewed, Interpreted and Dictated by Buddy Gamboa MD Transcribed by Amanda Morales Authenticated and [facility]
--- NOTE | 2024-10-07 14:12 | XR_ITS ---
FINAL REPORT CLINICAL HISTORY: LT HIP PAIN, SHOULDER/JOINT PAIN COMPARISON: None FINDINGS: Two views of the right shoulder show no evidence of acute displaced fracture or dislocation of the visualized bony architecture. There is mild AC joint arthropathy. IMPRESSION: No acute findings. Reviewed, Interpreted and Dictated by Buddy Gamboa MD Transcribed by Amanda Morales Authenticated and [facility]
--- OUTSIDE RECORDS SUMMARY | 2024-10-07 14:12 | XMS_ITS | Encounter Summary ---
Author Organization Healthcare Address [address] [place] [address] Care Team Providers Care Grid Trimmer Name Role Phone Kevin Awad MD Primary Care Provider [phone] Barbara Zuluaga APRN Primary Care Provider [phone] Encounter Details Date Type Department Care Team (Late st Contact Info) Description 07/16/2021 Ophth Exam [facility] [address] [place] [address] Emanuel Young, Social History Tobacco Use Types Packs/Day Years Used Date Smoking Tobacco: Never Assessed Comments Unknown Sex and Gender Information Value Date Recorded Sex Assigned at Not on file Legal Sex Female 11:22 AM EST Gender Identity Not on file Sexual Orientation Not on file COVID-19 Exposure Response Date Recorded In the last 10 days, have yo u been in contact with someone who was confirmed or suspected to have Coronavirus/COVID-19? No / Unsure 07/14/2021 2:22 PM EDT documented as of this encounter Plan of Treatment Not on file documented as of this encounter Visit Diagnoses Not on filedocumented in this encounter Care Teams Grid Trimmer Relationship Specialty Start Date End Date Kevin Awad MD [address] [place] [id number] PCP - General 07/14/21 06/27/22 Barbara Zuluaga APRN [address] [place] [id number] PCP - General 06/28/22 documented as of this encounter
--- OUTSIDE RECORDS SUMMARY | 2024-10-07 14:12 | XMS_ITS | Clinical Summary ---
Author Organization [facility] Address [address] [place] [address] Phone Care Team Providers Care Antisubmarine Weapons Officer Name Role Phone Unavailable Primary Care Provider Unavailabl e Allergies Active Allergy Reactions Criticality Noted Date Comments Clarithromycin Medications hydrochlorothiazi de (HYDRODIURIL) 12.5 mg tabletIndications :Unspecified essential hypertension Take 1 Tab by mouth daily. 90 Tab 1 2010 Active hydrochlorothiazi de (HYDRODIURIL) 25 mg tabletIndications :Unspecified essential hypertension Take 1 Tab by mouth daily. 90 Tab 1 01/03/2012 Active lisinopril (PRINIVIL;ZESTRIL ) 40 mg tabletIndications :Unspecified essential hypertension Take 1 Tab by mouth daily. 90 Tab 1 01/03/2012 Active levocetirizine (XYZAL) 5 mg tabletIndications :Allergic rhinitis Take 1 Tab by mouth daily. 90 Tab 1 01/03/2012 Active fluticasone (FLONASE) 50 mcg/actuation nasal sprayIndications: Allergic rhinitis 2 Sprays by Nasal route daily. 2 Bottle 4 01/03/2012 Active RABEprazole (ACIPHEX) 20 mg tabletIndications :Allergic rhinitis Take 1 Tab by mouth daily. 30 Tab 5 01/03/2012 Active budesonide-formot nori (SYMBICORT) 160-4.5 mcg/actuation inhalerIndication s:Bronchitis,Ousmane rgic bronchitis Inhale 2 Puffs into the lungs 2 times daily. 1 Inhaler 12 03/19/2012 Active Active Problems Problem Noted Date Diagnosed Date Unspecified essential hypertension 06/08/2009 Resolved Problems Problem Noted Date Diagnosed Date Resolved Date Unspecified essential hypertension 2010 Immunizations Immunization Administration Dates Next Due Tetanus, Unspecified Formulation 08/28/2006 Surgical History Surgery Date Site/Laterality Comments HYSTERECTOMY APPENDECTOMY Medical History Medical History Date Comments Allergy Social History Tobacco Use Types Packs/Day Years Used Date Smoking Tobacco: Never Alcohol Use Standard Drinks/Week Comments Yes 0 (1 standard drink = 0.6 oz pur e alcohol) Comments No Sex and Gender Information Value Date Recorded Sex Assigned at Not on file Legal Sex Female 12:23 AM EDT Gender Identity Not on file Sexual Orientation Not on file Obstetrics History Last Filed Vital Signs Vital Sign Reading Time Taken Comments Blood Pressure 130/82 03/19/2012 8:55 AM EST Pulse 70 03/19/2012 8:55 AM EST Temperature 36.7 C (98 F) 03/19/2012 8:55 AM EST Respiratory Rate 18 03/19/2012 8:55 AM EST Oxygen Saturation - - Inhaled Oxygen Concentration - - Weight 90.5 kg (199 lb 9.6 oz) 03/19/2012 8:55 A M EST Height 163.8 cm (5' 4.5 ) 03/19/2012 8:55 AM EST Body Mass Index 33.73 03/19/2012 8:55 AM EST Plan of Treatment Health Maintenance Due Date Last Done Comments Annual Wellness Exam 1959 DTaP/TDaP/Td (1 - Tdap) 1975 Breast Cancer Screening 1996 Cologuard 2001 Colon Cancer Screening 2001 Colonoscopy 2001 FIT 2001 Sigmoidoscopy 2001 Virtual Colonography 2001 Pneumococcal Vaccine 50+ (1 of 1 - PCV) 2006 Zoster (1 of 2) 2006 Bone Density Screening 2021 COVID-19 Vaccine ( - 2023-2 5 season) 2023 Influenza Vaccine (#1) 2024 Hepatitis C Screening Completed 06/10/2009 Hepatitis B Vaccine Aged Out No longe r eligible based on patient's age to complete this topic Meningococcal B Vaccine Aged Out No l onger eligible based on patient's age to complete this topic Procedures Procedure Name Priority Date/Time Associated Diagnosis Comments HEPATITIS C ANTIBODY IGM + IGG Routine 06/10/2009 4:20 PM EDT from Last 3 Months or Most Recently Relevant to Health Maintenance Results * HEPATITIS C ANTIBODY IGM + IGG (06/10/2009 4:20 PM EDT) Hep C Ab Negative Negative [facility] Blood specimen (specimen) 06/10/2009 4:20 PM EDT 06/10/2009 10:53 PM EDT Adama Mckay MD IMMUNOLOGY ORDERABLES Final Result Performing Organization Address City/State/[facility] Co de Phone Number [facility] [address] [place] [address] from Last 3 Months or Most Recently Relevant to Health Maintenance Insurance [employer] FED[employer]AL
--- OUTSIDE RECORDS SUMMARY | 2024-10-07 14:12 | XMS_ITS | Clinical Summary ---
Author Organization [facility] Address [address] [place] [address] Care Team Providers Care Administrative Fellow Name Role Phone Barbara Zuluaga Tereza KING Primary Care Provider [phone]- [phone] Allergies Active Allergy Reactions Criticality Noted Date Comments Clarithromycin Other - please document in the comment field Low 07/14/2021 Stomach ache Semaglutide(0.25 Or 0.5mg-Dos) Diarrhea Low 12/12/2021 Wasp Venom Protein Swelling High 07/16/2021 Medications Aspirin Low Dose 81 MG EC tablet Take 1 tablet (81 mg) by mouth 1 (one) time each day. 2 Active atorvastatin (Lipitor) 80 MG tablet Take 1 tablet (80 mg) by mouth every night. 2 Active cetirizine (ZyrTEC) 10 MG tablet Take 1 tablet (10 mg) by mouth 1 (one) time each day if needed. 2 Active fluticasone (Flonase) 50 MCG/ACT nasal spray Administer 1 spray into each nostril 1 (one) time each day if needed. 2 Active glipiZIDE (Glucotrol) 5 MG tablet Take 1 tablet (5 mg) by mouth 1 (one) time each day. 2 Active omeprazole (PriLOSEC) [address] capsule Take 1 capsule (20 mg) by mouth 1 (one) time each day if needed. 2 Active Brilinta 90 MG tablet Take 1 tablet (90 mg) by mouth 2 (two) times a day. 2 Active valsartan (Diovan) 160 MG tablet Take 1 tablet (160 mg) by mouth 2 (two) times a day. Active OneTouch Ultra test strip USE TO test blood sugar TWICE DAILY 2 Active Advocate Insulin Pen [place] 31G X 5 MM misc USE ONCE DAILY with soliqua 2 Active Advocate Insulin Syringe 30G X 5/16 1 ML misc 1 (one) time each day. as directed 2 Active Lancets (OneTouch Delica Plus [id number]) misc USE TO test blood sugar TWICE DAILY 2 Active insulin glargine (Lantus) 100 UNIT/ML injection vial Inject under the skin every night. Active pantoprazole (Protonix) 40 MG EC tablet Take 1 tablet (40 mg) by mouth. 3 Active amoxicillin-cl avulanate (Augmentin) 875-125 MG tablet TAKE ONE TABLET BY MOUTH EVERY TWELVE HOURS FOR 7 DAYS --TAKE WITH FOOD-- -- FINISH ALL MEDICINE -- 3 Active Jardiance 25 MG Take 1 tablet (25 mg) by mouth 1 (one) time each day in the morning. 3 Active ezetimibe (Zetia) 10 MG tablet Take 1 tablet (10 mg) by mouth 1 (one) time each day. 3 Active fluconazole (Diflucan) 150 MG tablet TAKE ONE TABLET BY MOUTH NOW, REPEAT IN 3 DAYS IF NEEDED 3 Active carvedilol (Coreg) 25 MG tablet Take 1 tablet (25 mg) by mouth 2 (two) times a day. 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 due to underlying condition 07/27/2021 Edema of optic disc of right eye 07/17/2021 Class 1 obesity due to exces s calories with body mass index (BMI) of 30.0 to 30.9 in adult 07/17/2021 Type 2 diabetes mellitus 07/17/2021 Presence of stent in coronar y artery in patient with coronary artery disease 07/17/2021 Claustrophobia 07/17/2021 Blurry vision, left eye 07/17/2021 Edema of optic disc of left eye 07/14/2021 Essential hypertension 06/08/2009 Immunizations Immunization Administration Dates Next Due Tetanus Toxoid, Unspecified 08/28/2006 Family History Medical History Relation Name Comments Diabetes Father Cancer Mother Relation Name Status Comments Father Mother Social History Tobacco Use Types Packs/Day Years Used Date Smoking Tobacco: Never Tobacco Cessation:Counseling Given: Not Answered Comments No Sex and Gender Information Value Date Recorded Sex Assigned at Not on file Legal Sex Female 11:22 AM EST Gender Identity Not on file Sexual Orientation Not on file Last Filed Vital Signs Vital Sign Reading Time Taken Comments Blood Pressure 148/85 08/16/2022 12:38 PM EDT Pulse 85 08/16/2022 12:38 PM EDT Temperature 36.5 C (97.7 F) 07/17/2021 7:43 AM EDT Respiratory Rate 15 07/17/2021 7:43 AM EDT Oxygen Saturation 96% 08/16/2022 12:38 PM EDT Inhaled Oxygen Concentration - - Weight 92.3 kg (203 lb 7.8 oz) 08/16/2022 12:38 PM EDT Height 162.6 cm (5' 4 ) 08/16/2022 12:38 PM EDT Body Mass Index 34.93 08/16/2022 12:38 PM EDT Plan of Treatment Health Maintenance Due Date Last Done Comments [facility]-Bone Density Scan 1956 [facility]-Depression Screening 1956 [facility]-Diabetes: Hemoglobin A1C 1955 [facility]Medicare Annual Wellness (AWV) 1955 [facility]-/Child/Adol SDOH Screenings 1956 Diabetes: Dental Exam 1966 [facility]- SDOH Screenings 1974 [facility]-Adult SDOH Screenings 1974 [facility]-DTaP,Tdap,and Td Vaccine s (1 - Tdap) 1975 [facility]-Pneumococcal Vaccine: 50 + Years (1 of 2 - PCV) 1975 CT Colonography 2001 Colonoscopy 2001 FIT-DNA 2001 FIT 2001 FOBT 2001 Sigmoidoscopy 2001 [facility]-Colorectal Cancer Screening 2001 [facility]-Breast Cancer Screening 2006 [facility]-Zoster Vaccines (1 of 2) 2006 [facility]-RSV Vaccine: 60+ Years o r (1 - Risk 60-74 years 1-dose series) 2016 [id number] Vaccine (1 - season) 2023 [facility]-Influenza Vaccine (#1) 2024 [facility]-Hepatitis C Screening Completed 07/14/2021 [facility]-Obesity Intervention Completed 023, 08/16/2022 HPV Vaccines Aged Out No longer eligi ble based on patient's age to complete this topic [facility]-HIB Vaccines Aged Out No longer e ligible based on patient's age to complete this topic [facility]-Hepatitis A Vaccines Aged Out No longer eligible based on patient's age to complete this topic [facility]-IPV Vaccines Aged Out No longer e ligible based on patient's age to complete this topic [facility]-Rotavirus Vaccines Aged Out No lo nger eligible based on patient's age to complete this topic Procedures Procedure Name Priority Date/Time Associated Diagnosis Comments HEPATITIS C ANTIBODY - ED W/REFLEX TO HCV QUANT PCR STAT 07/14/2021 3:30 PM EDT from Last 3 Months or Most Recently Relevant to Health Maintenance Results * [place] Hepatitis C Antibody (07/14/2021 3:30 PM EDT) Hepatitis C Antibody Negative Negative 07/14/2021 5:14 PM EDT [facility] Blood Venous blood specimen / Unknown Venipuncture / Unknown 07/14/2021 3:30 PM EDT 07/14/2021 3:51 PM EDT us Amanda Medrano MD LAB BLOOD ORDERABLES Final Res ult [facility] [address] [place] [address] from Last 3 Months or Most Recently Relevant to Health Maintenance Insurance MEDICARE [facility] Care Teams Administrative Fellow Relationship Specialty Start Date End Date Barbara Zuluaga APRN [address] [facility] [address] [place] [address] PCP - General 06/28/22
--- OUTSIDE RECORDS SUMMARY | 2024-10-07 14:12 | XMS_ITS | Encounter Summary ---
Author Organization [facility] Address [address] [place] [address] Care Team Providers Care Aviation Maintenance Technician Name Role Phone Barbara Zuluaga VICE PRESIDENT OF NURSING Primary Care Provider [phone]- [phone] Reason for Referral * Consultation (Routine) - Closed Specialty Diagnoses / Procedures Referred By Levar philippe Referred To Contact Rheumatology Diagnoses Papilledema Barbara Zuluaga, VICE PRESIDENT OF NURSING [address] [address] Phone: tel: fax: Referral ID Status Reason Start Date Expiration Date V isits Requested Visits Authorized [id number] Closed Specialty Services Required 07/03/2022 01/02/2024 1 1 Encounter Details Date Type Department Care Team (Late st Contact Info) Description 07/03/2022 Community [facility] [address] [place] [address] Barbara Zuluaga, VICE PRESIDENT OF NURSING [address] [address] Papilledema (Primary Dx) Social History Tobacco Use Types Packs/Day Years Used Date Smoking Tobacco: Never Comments No Sex and Gender Information Value Date Recorded Sex Assigned at Not on file Legal Sex Female 11:22 AM EST Gender Identity Not on file Sexual Orientation Not on file documented as of this encounter Plan of Treatment Scheduled Referrals Name Type Priority Associated Diagnoses Order Schedule Ambulatory referral to Rheumatology Outpatient Referral Routine Papilledema Expected: 07/03/2022 (Approximate), Expires: 01/04/2024 documented as of this encounter Visit Diagnoses Diagnosis Papilledema- Primary Unspecified papilledema documented in this encounter Additional Health Concerns Assessment Noted Time A fall risk assessment has been complete d for the patient 05/22/2022 1:47 PM EDT documented as of this encounter Care Teams Aviation Maintenance Technician Relationship Specialty Start Date End Date Barbara Zuluaga APRN [facility] [place] [address] PCP - General 06/28/22 documented as of this encounter
== END 2024-10-07 23:59 | disposition home or self-care (01) ==
LOC: RAD 14:06
PROVIDERS: PCP Nurse Practitioner Family; Visit Provider Nurse Practitioner Family
DX: M12.811 Other specific arthropathies, not elsewhere classified, right shoulder (principal); M25.552 Pain in left hip
CPT/HCPCS: 73030; 73502

== ENCOUNTER 2024-11-17 10:27 | Outpatient (CLI) | payer MEDICARE, BC, SELFPAY ==
--- OUTSIDE RECORDS SUMMARY | 2024-11-17 10:34 | XMS_ITS | Encounter Summary ---
Author Organization [facility] Address [address] [place] [address] Care Team Providers Care Manager Internal Name Role Phone Barbara Zuluaga BISTRO SERVER Primary Care Provider [phone] Reason for Referral * Consultation (Routine) - Closed Specialty Diagnoses / Procedures Referred By Levar philippe Referred To Contact Rheumatology Diagnoses Papilledema Barbara Zuluaga, BISTRO SERVER [address] [address] Phone: tel: fax: Referral ID Status Reason Start Date Expiration Date V isits Requested Visits Authorized [id number] Closed Specialty Services Required 07/03/2022 01/02/2024 1 1 Encounter Details Date Type Department Care Team (Late st Contact Info) Description 07/03/2022 Community [facility] Community Practice [address] [place] [address] Barbara Zuluaga, BISTRO SERVER [address] [address] Papilledema (Primary Dx) Social History Tobacco Use [...] documented as of this encounter Care Teams Manager Internal Relationship Specialty Start Date End Date Barbara Zuluaga APRN [facility] [place] [address] PCP - General 06/28/22 documented as of this encounter
--- OUTSIDE RECORDS SUMMARY | 2024-11-17 10:34 | XMS_ITS | Clinical Summary ---
Author Organization [facility] Address [address] [place] [address] Care Team Providers Care Manager Government Name Role Phone Barbara Zuluaga Tereza KING Primary Care Provider [phone]- [phone] Allergies Active Allergy Reactions Criticality Noted Date [...] TWICE DAILY 2 Active Advocate Insulin Pen [place] 31G X 5 MM misc USE ONCE DAILY with soliqua 2 Active Advocate Insulin Syringe 30G X 5/16 1 ML misc 1 (one) time each day. as directed 2 Active Lancets (OneTouch Delica Plus [id number]) misc USE TO test blood sugar TWICE [...] Other localized visual field defect, left eye Mild nonproliferative diabet ic retinopathy of both [...] of left eye 07/14/2021 Essential hypertension 06/08/2009 Resolved Problems Problem Noted Date Diagnosed Date Resolved Date Nuclear sclerotic cataract of both eyes 07/27/2021 11/16/2024 Immunizations Immunization Administration Dates Next Due Tetanus [...] [facility]-Depression Screening 1956 [facility]-Diabetes: Hemoglobin A1C 1956 [facility]-Medicare Annual Wellness (AWV) 1956 [facility]-/Child/Adol SDOH Screenings [...] - Risk 60-74 years 1-dose series) 2016 [id number] Vaccine (1 - season) 2024 [facility]-Influenza Vaccine (#1) 2024 [facility]-Hepatitis C Screening [...] Recently Relevant to Health Maintenance Results * [place] Hepatitis C Antibody (07/14/2021 3:30 PM EDT) Hepatitis C Antibody Negative Negative 07/14/2021 5:14 PM EDT [facility] Blood Venous blood specimen / Unknown Venipuncture / Unknown 07/14/2021 3:30 PM EDT 07/14/2021 3:51 PM EDT us Amanda Medrano MD LAB BLOOD ORDERABLES Final Res ult [facility] [address] [place] [address] from Last 3 Months or Most Recently Relevant to Health Maintenance [place] [address] [facility] Care Teams Manager Government Relationship Specialty Start Date End Date Barbara Zuluaga APRN [address] [place] [address] PCP - General 06/28/22
--- OUTSIDE RECORDS SUMMARY | 2024-11-17 10:34 | XMS_ITS | Clinical Summary ---
Author Organization [facility] Address [address] [place] [address] Phone Care Team Providers Care Jukebox Operator Name Role Phone Unavailable Primary Care Provider [...] 2006 Bone Density Screening 2021 COVID-19 Vaccine (1 - 2023-2 5 season) 2024 Influenza Vaccine (#1) 2024 Hepatitis C Screening [...] PM EDT) Hep C Ab Negative Negative [facility] Blood specimen (specimen) 06/10/2009 4:20 PM EDT 06/10/2009 10:53 PM EDT Adama Mckay MD IMMUNOLOGY ORDERABLES Final Result Performing Organization Address City/State/[facility] Co de Phone Number [facility] [address] [place] [address] from Last 3 Months or Most Recently Relevant to Health Maintenance Insurance FEDERAL FEDERAL
--- OUTSIDE RECORDS SUMMARY | 2024-11-17 10:34 | XMS_ITS | Encounter Summary ---
Author Organization [facility] Address [address] [place] [address] Care Team Providers Care Professional Programmer Analyst Name Role Phone Kevin Awad MD Primary Care Provider [phone] Barbara Zuluaga APRN Primary Care Provider [phone] Encounter Details Date Type Department Care Team (Late st Contact Info) Description 07/16/2021 Ophth Exam [facility] - Pediatrics [address] [place] [address] Emanuel Young, Social History Tobacco [...] on filedocumented in this encounter Care Teams Professional Programmer Analyst Relationship Specialty Start Date End Date Kevin Awad MD [address] [place] [address] PCP - General 07/14/21 06/27/22 Barbara Zuluaga APRN [address] [place] [address] PCP - General 06/28/22 documented as of this encounter
[2024-11-17 10:57] LABS: Hematocrit 40.6 % (37.0-47.0); Hemoglobin 12.9 g/dL (12.2-16.2); Mean Corpuscular HGB Conc 31.8 g/dL (31.8-35.4); Mean Corpuscular Hemoglobin 26.1 pg (27.0-31.2); Mean Corpuscular Volume 82.0 fl (81-99); Platelet Count 331 K/mm3 (142-424); Red Blood Count 4.95 M/mm3 (4.20-5.40); White Blood Count 7.7 K/mm3 (4.8-10.8)
[2024-11-17 11:20] LABS: Albumin Level 3.9 g/dl (3.5-5.0); Chloride 107 mmol/L (98-107); Potassium 4.5 mmoL/L (3.5-5.1); Sodium 138 mmol/L (136-145)
[2024-11-17 11:22] LABS: Bilirubin,Unconjugated 0.4 mg/dL (0.0-1.1); Blood Urea Nitrogen 19 mg/dl (7-17); Creatinine,Serum 0.80 mg/dl (0.52-1.04); Estimated Glomerular Filt Rate 71 ml/min (>60); GFR (African American) 86 ML/MIN (>60)
[2024-11-17 11:23] LABS: Alanine Aminotransferase 15 U/L (12-78); Alkaline Phosphatase 104 U/L (38-126); Anion Gap 13.5 mEq/L (5-15); Aspartate Amino Transferase 25 U/L (14-36); Bilirubin,Direct 0.1 mg/dl (0.0-0.4); Bilirubin,Indirect 0.4 mg/dL (0.0-0.9); Bilirubin,Total 0.5 mg/dl (0.2-1.3); Calcium 9.2 mg/dl (8.4-10.2); Carbon Dioxide 22 mmol/L (22.0-30.0); Cholesterol 200 mg/dl (140-200); Glucose 124 mg/dl (74-100); HDL Cholesterol 55 mg/dl (40-60); Total Protein,Serum 6.5 g/dl (6.3-8.2); Triglycerides 170 mg/dl (30-150)
[2024-11-17 11:26] LABS: RBC Morphology Normal; Total Cells Counted 100
[2024-11-17 11:42] LABS: Free T4 (Free Thyroxine) 0.91 ng/dl (0.78-2.19)
[2024-11-17 11:54] LABS: Thyroid Stimulating Hormone 0.81 uIU/mL (0.465-4.68)
== END 2024-11-17 23:59 | disposition home or self-care (01) ==
LOC: LAB 10:28
PROVIDERS: PCP Nurse Practitioner Family; Visit Provider Physician Assistant
DX: I25.5 Ischemic cardiomyopathy (principal); I25.119 Atherosclerotic heart disease of native coronary artery with unspecified angina pectoris; I11.0 Hypertensive heart disease with heart failure; I50.40 Unspecified combined systolic (congestive) and diastolic (congestive) heart failure
CPT/HCPCS: 36415; 80048; 80061; 80076; 84439; 84443; 85007; 85014; 85018; 85048; 85049

== ENCOUNTER 2024-11-19 08:41 | Outpatient (RCR) | payer MEDICARE, BC, SELFPAY | END 2024-11-19 23:59 | disposition home or self-care (01) | LOC: OT 08:41 | PROVIDERS: Visit Provider Nurse Practitioner Family | DX: M25.511 Pain in right shoulder (principal) | CPT/HCPCS: 97032; 97165 ==

== ENCOUNTER 2024-11-19 08:43 | Outpatient (RCR) | payer MEDICARE, BC, SELFPAY ==
--- NOTE | 2024-11-19 10:49 | HMH.PTOPEV ---
PT Evaluation Rehab PT Outpatient Evaluation Start: 11/19/24 09:12 Freq: Status: Active Protocol: Document 11/19/24 09:23 JENS (Rec: 11/19/24 10:48 JENS [id number]) E-signed By Juana Avalos, PT Outpatient Therapy Subjective History Subjective History Pt is a 69 y/o female who reports insidious onset of left anterior hip pain a few months ago. Pt reports symptoms have slightly improved since onset but reports pain continues to be aggravated by prolonged walking, stair climbing, lifting the left leg such as donning her pants and getting in/out of the car. Pt reports sometimes she will get aching pain from the left hip to her knee with increased activity that seems worse when weightbearing. Pt reports the right knee often feels unstable when pain is increased and with pivoting. Pt denies buckling or falls. Pt had a hip radiograph on 02/19 with impression of No acute bony abnormality. Pt reports she is taking Tylenol arthritis as needed which seem s to assist with pain. Pt denies swelling or paresthesia. Medical History: Type II Diabetes, Hypertension, Hyperlipidemia BP: 142/86 mmHg taken seated in L arm New diagnosis of No cancer in past 12 months? Chief Complaint Pain Symptom Type Ache,Sharp,Dull Symptoms Relieved By OTC Meds Symptoms Aggravated Standing,Physical Activity,Twisting,Walking By Current Functional Housework,Dressing,Standing,Recreation Activity,Walking Limitations ,Stairs Symptom Description Intermittent Level of pain today 3 (0-10) Pain scale - at its 3 best (0-10) Pain scale - at its 10 worst (0-10) Hip/Knee Eval Gait Observation General Gait Pattern Antalgic Gait,Decrease Weight Bear (L) Observation Assistive Device Assistive Devices None / NA Palpation Tenderness left Hip Palpation Tenderness Findings Hip Palpation 2/4 TTP of AIIS and rectus femoris Overall Comment MMT Hip Flexion Strength 4- Good- Grade Hip Abduction 4- Good- Strength Grade Hip Adduction 4- Good- Strength Grade Hip Extension 4- Good- Strength Grade Knee Extension 5 Normal Strength Grade Knee Flexion 5 Normal Strength Grade ROM Hip Flexion w/Knee 112 Flexed Active Range of Motion (degrees) Hip External 40 Rotation Active Range of Motion ( degrees) Hip Internal 40 Rotation Active Range of Motion ( degrees) Knee Extension 0 Active Range of Motion (degrees) Knee Flexion Active 120 Range of Motion ( degrees) Special Tests Hip Piriformis Test Negative Left Sciatic Nerve Negative Left Tension Test Hip Scouring ( Negative Left Quadrant) Test Lower Extremity Functional Index Activities Today, do you or would you have any difficulty at all with: a.Any of your usual Moderate difficulty work, housework or school activities b. Your usual Moderate difficulty hobbies, recreational or sporting activities c. Getting into or Moderate difficulty out of the bath d. Walking between Moderate difficulty rooms e. Putting on your A little bit of difficulty shoes or socks f. Squatting Quite a bit of difficulty g. Lifting an object No difficulty , like a bag of groceries from the floor h. Performing light A little bit of difficulty activities around your home i. Performing heavy A little bit of difficulty activities around your home j. Getting into or Moderate difficulty out of a car k. Walking 2 blocks Moderate difficulty l. Walking a mile Quite a bit of difficulty m. Going up or down Moderate difficulty 10 stairs (about 1 flight of stairs) n. Standing for 1 A little bit of difficulty hour o. Sitting for 1 No difficulty hour p. Running on even Quite a bit of difficulty ground q. Running on uneven Quite a bit of difficulty ground r. Making sharp Moderate difficulty turns while running fast s. Hopping Moderate difficulty t. Rolling over in A little bit of difficulty bed LEFI Score Lower Extremity 45 Functional Index Score Outpatient Therapy Assessment Impairments Problems/ Palpation Tenderness,Impaired Range of Motion,Impaired Impairmments Strength,Impaired Transfers,Impaired Gait Pattern, Impaired Walking,Impaired Dressing,Impaired Household Care,Impaired Stair Climbing,Impaired Incline Stepping, Impaired Stepping on Uneven Surface,Subjective C/O Pain ,Impaired Self Care/Self Management Prognosis Rehab Potential Good Clinical Impression Consistent with Yes Diagnosis PT Patient Goals PT Patient Goals PT Short Term 2-3 weeks: Patient Goals 1. Verbalize compliance with HEP to assist with progress. 2. Report ability to don pants without pain to assist with ADLs. 3. Improve pain at worst to 8/10 on VAS to improve overall QOL/function. 4. Improve LEFS score to 50/80 to improve overall QOL/ function. PT Machinist Bench Patient 4-6 weeks: Goals 1. Improve tenderness to palpation of L hip flexor mm to 0-1/4 to assist with pain. 2. Improve L hip MMT to 4-4+/5 grossly to assist with function. 3. Improve pain at worst to 6/10 on VAS to improve overall QOL/function. 4. Improve LEFS score to at least 55-60/80 to improve overall QOL/function. 5. Report ability to perform car transfer with pain 6/ 10 or less to assist with function. 6. [place] 1 flight of stairs with hip pain 6/10 or less to assist with community navigation. Outpatient Therapy Plan of Care Treatment Plan May Include Therapeutic Exercise Yes Including Home Exercise Program Manual Therapy Yes Techniques Neuromuscular Re- Yes education Therapeutic Yes Activities to Return to Previous Functional/Work Level Gait Training Yes ADL/Self Care Yes Education Mechanical Traction Yes Dry Needling Yes Thermal Modalities Yes Electrical Yes Stimulation Ultrasound/ Yes Phonophoresis Iontophoresis Yes Massage Yes Group Therapy for Yes Medicare Eval/Re-Eval Yes Frequency Times per week 2 Duration Number of Weeks 4-6 Addendums This patient is a No candidate for social or vocational rehab ? Patient/Guardian Yes verbally acknowledges understanding of treatment program and consents to further treatment? Patient/Guardian Yes verbally acknowledges understanding of diagnosis, prognosis and goals for treatment? Shoulder/Elbow Eval Shoulder Objective Measurements Elbow Objective Measurements PHYSICIAN CERTIFICATION: I certify the specified therapy services for Sulema Lemons are required, authorized, and reviewed every 30 days.
== END 2024-11-19 23:59 | disposition home or self-care (01) ==
LOC: PT 08:43
PROVIDERS: Visit Provider Nurse Practitioner Family
DX: M25.552 Pain in left hip (principal)
CPT/HCPCS: 97110

== ENCOUNTER 2024-12-11 15:00 | Outpatient (RCR) | payer MEDICARE, BC, SELFPAY | END 2024-12-11 23:59 | disposition home or self-care (01) | LOC: OT 15:00 | PROVIDERS: Visit Provider Nurse Practitioner Family | DX: M25.511 Pain in right shoulder (principal) | CPT/HCPCS: 97032; 97110; 97140; 97530 ==

== ENCOUNTER 2024-12-30 08:51 | Outpatient (CLI) | payer MEDICARE, BC, SELFPAY ==
--- OUTSIDE RECORDS SUMMARY | 2024-12-30 08:54 | XMS_ITS | Clinical Summary ---
Author Organization [facility] Address [address] [place] [address] Care Team Providers Care Car Stereo Installer Name Role Phone Barbara Zuluaga Tereza KING Primary Care Provider [phone] Allergies Active Allergy Reactions Criticality Noted Date [...] TWICE DAILY 2 Active Advocate Insulin Pen [place] 31G X 5 MM misc USE ONCE DAILY with soliqua 2 Active Advocate Insulin Syringe 30G X 5/16 1 ML misc 1 (one) time each day. as directed 2 Active Lancets (OneTouch Delica Plus [id number]) misc USE TO test blood sugar TWICE [...] - Risk 60-74 years 1-dose series) 2016 [id number] Vaccine (1 - season) 2024 [facility]-Influenza Vaccine [...] Recently Relevant to Health Maintenance Results * [place] Hepatitis C Antibody (07/14/2021 3:30 PM EDT) Hepatitis C Antibody Negative Negative 07/14/2021 5:14 PM EDT [facility] Blood Venous blood specimen / Unknown Venipuncture / Unknown 07/14/2021 3:30 PM EDT 07/14/2021 3:51 PM EDT us Amanda Medrano MD LAB BLOOD ORDERABLES Final Res ult [facility] [address] [place] [address] from Last 3 Months or Most Recently Relevant to Health Maintenance [place] [address] [facility] Care Teams Car Stereo Installer Relationship Specialty Start Date End Date Barbara Zuluaga APRN [address] [place] [address] PCP - General 06/28/22
--- OUTSIDE RECORDS SUMMARY | 2024-12-30 08:54 | XMS_ITS | Encounter Summary ---
Author Organization [facility] Address [address] [place] [address] Care Team Providers Care Measuring Machine Operator Name Role Phone Barbara Zuluaga SPORT INTERN Primary Care Provider [phone]- [phone] Reason for Referral * Consultation (Routine) - Closed Specialty Diagnoses / Procedures Referred By Levar philippe Referred To Contact Rheumatology Diagnoses Papilledema Barbara Zuluaga, SPORT INTERN [address] [address] Phone: tel: fax: Referral ID Status Reason Start Date Expiration Date V isits Requested Visits Authorized [id number] Closed Specialty Services Required 07/03/2022 01/02/2024 1 1 Encounter Details Date Type Department Care Team (Late st Contact Info) Description 07/03/2022 Community [facility] Community [facility] [address] [place] [address] Barbara Zuluaga, SPORT INTERN [address] [address] Papilledema (Primary Dx) Social History Tobacco Use [...] documented as of this encounter Care Teams Measuring Machine Operator Relationship Specialty Start Date End Date Barbara Zuluaga APRN [facility] [place] [address] PCP - General 06/28/22 documented as of this encounter
--- OUTSIDE RECORDS SUMMARY | 2024-12-30 08:54 | XMS_ITS | Encounter Summary ---
Author Organization [facility] Address [address] [place] [address] Care Team Providers Care Paediatrician Name Role Phone Kevin Awad MD Primary Care Provider [phone] Barbara Zuluaga APRN Primary Care Provider [phone] Encounter Details Date Type Department Care Team (Late st Contact Info) Description 07/16/2021 Ophth Exam [facility] - Pediatrics [address] [place] [address] Emanuel Young, Social History Tobacco Use [...] on filedocumented in this encounter Care Teams Paediatrician Relationship Specialty Start Date End Date Kevin Awad MD [address] [place] [address] PCP - General 07/14/21 06/27/22 Barbara Zuluaga APRN [address] [place] [address] PCP - General 06/28/22 documented as of this encounter
--- OUTSIDE RECORDS SUMMARY | 2024-12-30 08:54 | XMS_ITS | Clinical Summary ---
Author Organization [facility] Address [address] [place] [address] Phone Care Team Providers Care Coal Unloader Name Role Phone Unavailable Primary Care Provider [...] Density Screening 2021 COVID-19 Vaccine ( - 2024-2 6 season) 2024 Influenza Vaccine (#1) 2024 Hepatitis [...] PM EDT) Hep C Ab Negative Negative [facility] Blood specimen (specimen) 06/10/2009 4:20 PM EDT 06/10/2009 10:53 PM EDT Adama Mckay MD IMMUNOLOGY ORDERABLES Final Result Performing Organization Address City/State/[facility] Co de Phone Number [facility] [address] [place] [address] from Last 3 Months or Most Recently Relevant to Health Maintenance Insurance [employer] FED[employer]
--- NOTE | 2024-12-30 09:00 | CA_ITS ---
FINAL REPORT TECHNIQUE: Grayscale, color Doppler and duplex Doppler ultrasound of the kidneys, aorta and renal arteries was performed. Multiple velocities were measured. CLINICAL HISTORY: HTN,DM,HLD,CAD FINDINGS: Aorta velocity: 88 cm/sec Right kidney: 10.7 cm. No evidence of hydronephrosis or mass. Right intrarenal RI: 0.41-0.69 Right renal artery velocity: 156 cm/sec. Right RAR (Renal artery-Aortic Ratio): 1.76 Left Kidney: 9.6 cm. No evidence of hydronephrosis or mass. Left intrarenal RI: 0.56-0.67 Left renal artery velocity: 100 cm/sec. Left RAR (Renal Artery-Aortic Ratio): 1.13 IMPRESSION: Less than 60% renal artery stenosis bilaterally. CT angiogram or postcontrast MR angiogram would be more sensitive for evaluation of possible renal artery stenosis. Reviewed, Interpreted and Dictated by Karen Washburn MD Transcribed by Amanda Morales Authenticated and [facility]
--- NOTE | 2024-12-30 10:00 | US_ITS ---
FINAL REPORT TECHNIQUE: Sonographic images of the kidneys and retroperitoneum were obtained in the longitudinal and transverse planes. CLINICAL HISTORY: I10 - Essential (primary) hypertension COMPARISON: None FINDINGS: The right kidney measures 8.9 cm in [id number] length. No hydronephrosis, mass, or stone. Cortical echogenicity and thickness are normal. The left kidney measures 10.7 cm in [id number] length. No hydronephrosis. Small cyst, possibly septated. Cortical echogenicity and thickness are normal. Limited evaluation of the spleen and liver demonstrate no acute abnormality. IMPRESSION: Left renal cyst. Otherwise, morphologically normal kidneys bilaterally. Reviewed, Interpreted and Dictated by Karen Washburn MD Transcribed by Amanda Morales Authenticated and . [facility]
== END 2024-12-30 23:59 | disposition home or self-care (01) ==
LOC: RT 08:51
PROVIDERS: PCP Nurse Practitioner Family; Visit Provider Physician Assistant
DX: N28.1 Cyst of kidney, acquired (principal); I70.1 Atherosclerosis of renal artery; I10 Essential (primary) hypertension
CPT/HCPCS: 76770; 93976